=== PATIENT | male | born 1955 | race Caucasian/White ===

== ENCOUNTER 2018-01-24 10:54 | Emergency (ER) | payer OTHER ==
[2018-01-24 12:19] LABS: Absolute Lymphocytes (CBC) 1.8 K/uL (0.7-4.9); Absolute Monocytes 0.4 K/uL (0.1-1.3); Absolute Neutrophil 4.5 K/uL (1.8-8.0); Basophils % 0.3 % (0-1.3); Eosinophils % 1.3 % (0-4.4); Hematocrit 42.2 % (39.6-49.0); Lymphocytes % 26.1 % (15.3-44.8); MCH 30.8 pg (27.0-35.0); MCV 91.1 fL (80-100); MPV 8.2 fL (7.6-11.3); Monocytes % 6.5 % (3.3-12.3); RBC Red Blood Cell Count 4.63 M/uL (4.33-5.43)
[2018-01-24 12:28] LABS: Protime INR 0.96
[2018-01-24 12:33] LABS: Bicarbonate 27 mEq/L (21-31); Glucose Level 113 mg/dL (65-120); Sodium Level 137 mEq/L (135-145)
--- NOTE | 2018-01-24 12:33 | RAD REPORT ---
EXAM DESCRIPTION: RAD - Chest Single View - 01/24/2018 12:22 pm CLINICAL HISTORY: Syncope, dizziness COMPARISON: None. TECHNIQUE: AP portable chest image was obtained 1209 hours . FINDINGS: Lungs are clear. Heart and vasculature are normal. No measurable pleural effusion and no p neumothorax. No gross bony abnormality seen. No acute aortic findings suspected. IMPRESSION: No acute cardiopulmonary process.
--- NOTE | 2018-01-24 12:34 | RAD REPORT ---
EXAM DESCRIPTION: CT - Head Brain Wo Cont - 01/24/2018 12:25 pm COMPARISON: None. TECHNIQUE: Axial 5 mm thick images of the head were obtained without IV contrast. All CT scans are performed using dose optimization technique as appropriate and may include automated exposure control or mA/KV adjustment according to patient size. FINDINGS: No intracranial hemorrhage, mass, edema or shift of mid-line structures. No acute infarcti on changes seen. Minimal atrophy and chronic ischemic change noted. Arterial and physiologic calcific ations are present. No abnormal extra-axial fluid collections. Ventricles are normal. Mastoid air cells and visualized portions of the paranasal sinuses are clear. No acute bony findings. IMPRESSION: Negative non-contrast CT head examination for acute or suspicious finding.
[2018-01-24 12:39] LABS: ALT/SGPT 21 IU/L (10-60); AST/SGOT 32 IU/L (10-42); Albumin 4.2 g/dL (3.2-5.5); Alkaline Phosphatase 56 IU/L (42-121); BUN Blood Urea Nitrogen 14 mg/dL (6-20); Bilirubin Direct < 0.1 mg/dL (0-0.2); Bilirubin Total 0.6 mg/dL (0.3-1.2); Creatine Phosphokinase 108 IU/L (22-269); Glomerular Filtration Rate > 90 mL/min (=/>90); Protein, Total 7.5 g/dL (6.0-8.3)
[2018-01-24] MEDS ORDERED: MECLIZINE HCL 12.5 MG TAB ONE (12:39)
[2018-01-24] MEDS ORDERED: ONDANSETRON 4 MG/2 ML VIAL ONE (12:39)
[2018-01-24 12:40] LABS: CKMB Creatine Kinase MB 2.8 ng/ml (0.3-4.0)
--- NOTE | 2018-01-24 15:15 | ER ---
Nurse's Notes [facility] Name: Antony Rothman Age: 62 yrs Sex: Male : 1955 Arrival Date: 01/24/2018 Time: 10:59 Bed 17 Private MD: Filippo Callaway Diagnosis: Dizziness Presentation: 01/24 11:26 Presenting complaint: Patient states: " I felt like I had some water in my R ear this ph morning so I plugged my nose and blew to try to unstop it and I got dizzy all of a sudden. Now the room is spinning when I stand up." Pt reports dizziness and nausea, denies weakness or syncope. Transition of care: patient was not received from another setting of care. Onset of symptoms was January 24, 2018. Care prior to arrival: None. 11:26 Method Of Arrival: Ambulatory ph 11:26 Acuity: MICHELLE 3 ph Historical: - Allergies: 11:30 No Known Allergies; ph - Home Meds: 11:30 Combivent 18-103 mcg/actuation Inhl aero [Active]; ph - PMHx: 11:30 COPD; ph - Immunization history:: Adult Immunizations up to date. - Social history:: Smoking status: Patient/guardian denies using tobacco. Screenin:45 Abuse screen: Denies threats or abuse. Denies injuries from another. Nutritional aj1 screening: No deficits noted. Tuberculosis screening: No symptoms or risk factors identified. 15:39 Fall Risk None identified. aj1 Assessment: 11:45 General: Appears in no apparent distress. uncomfortable, Behavior is calm, cooperative, aj1 appropriate for age. Pain: Denies pain. Neuro: Level of Consciousness is awake, alert, obeys commands, Oriented to person, place, time, situation, Operations And Intelligence Assistant are equal bilaterally Moves all extremities. Full function Speech is normal, Facial symmetry appears normal, Reports dizziness, Denies weakness numbness. Cardiovascular: Denies chest pain, palpitations, shortness of breath, syncope, vomiting, Heart tones S1 S2 present Patient's skin is warm and dry. Rhythm is regular Chest pain is denied. Respiratory: Airway is patent Respiratory effort is even, unlabored, Respiratory pattern is regular, symmetrical, Breath sounds are clear bilaterally. GI: No signs and/or symptoms were reported involving the gastrointestinal system. : No signs and/or symptoms were reported regarding the genitourinary system. EENT: No signs and/or symptoms were reported regarding the EENT system. Derm: No signs and/or symptoms reported regarding the dermatologic system. Skin is pink, warm \\T\\ dry. normal. Musculoskeletal: No signs and/or symptoms reported regarding the musculoskeletal system. Circulation, motion, and sensation intact. 12:15 Reassessment: Patient transported to [place] via wheelchair. aj1 12:57 Reassessment: Patient appears in no apparent distress at this time. No changes from aj1 previously documented assessment. Patient and/or family updated on plan of care and expected duration. Pain level reassessed. Patient is alert, oriented x 3, equal unlabored respirations, skin warm/dry/pink. 13:47 Reassessment: Patient appears in no apparent distress at this time. No changes from aj1 previously documented assessment. Patient and/or family updated on plan of care and expected duration. Pain level reassessed. Patient is alert, oriented x 3, equal unlabored respirations, skin warm/dry/pink. 15:18 Reassessment: Patient appears in no apparent distress at this time. Patient and/or aj1 family updated on plan of care and expected duration. Pain level reassessed. Patient is alert, oriented x 3, equal unlabored respirations, skin warm/dry/pink. Patient denies pain at this time. Patient states feeling better. Patient states symptoms have improved. Vital Signs: 11:29 BP 161 / 100; Pulse 62; Resp 18; Temp 97.6; Pulse Ox 99% on R/A; Weight 88.45 kg; ph Height 5 ft. 7 in. (170.18 cm); Pain 0/10; 12:00 BP 165 / 85; Pulse 72; Resp 18; Pulse Ox 99% ; aj1 12:57 BP 159 / 87; Pulse 56; Resp 18; Pulse Ox 99% on R/A; aj1 13:48 BP 143 / 82; Pulse 60; Resp 18; Pulse Ox 99% ; aj1 15:18 BP 133 / 88; Pulse 62; Resp 18; Pulse Ox 99% on R/A; aj1 15:38 BP 130 / 75; Pulse 62; Resp 18; Pulse Ox 100% on R/A; aj1 11:29 Body Mass Index 30.54 (88.45 kg, 170.18 cm) ph ED Course: 10:59 Patient arrived in ED. as 11:00 [facility], [facility] is Private Physician. as 11:25 Jorge Bermeo PA is PHCP. cp 11:25 Torey Ortiz MD is Attending Physician. cp 11:28 Triage completed. ph 11:30 Arm band placed on. ph 11:35 Mireille Espinoza, RN is Primary Nurse. aj1 11:45 Patient has correct armband on for positive identification. aj1 11:45 No provider procedures requiring assistance completed. aj1 12:25 CT completed. Patient tolerated procedure well. Patient moved back from CT. nb1 15:14 Anatoly Dawn MD is Referral Physician. cp 15:38 IV discontinued, intact, bleeding controlled, No redness/swelling at site. Pressure aj1 dressing applied. Administered Medications: 13:05 Drug: Meclizine 25 mg Route: PO; aj1 15:19 Follow up: Response: No adverse reaction aj1 13:05 Drug: Zofran 4 mg Route: IVP; Site: right antecubital; aj1 15:19 Follow up: Response: No adverse reaction aj1 Outcome: 15:14 Discharge ordered by MD. cp 15:39 Discharged to home ambulatory. aj1 15:39 Condition: good 15:39 Discharge instructions given to patient, Instructed on discharge instructions, follow up and referral plans. medication usage, Demonstrated understanding of instructions, follow-up care, medications, Prescriptions given X 2. 15:39 Patient left the ED. aj1 Signatures: Mireille Espinoza, RN RN aj1 Marilin Farah Patricia, RN RN Jorge Bermeo PA PA cp Sherry Jauregui nb
--- NOTE | 2018-01-24 15:15 | EDPHYS ---
Physician Documentation [facility] Name: Antony Rothman Age: 62 yrs Sex: Male : 1955 Arrival Date: 01/24/2018 Time: 10:59 Bed 17 Private MD: [facility] ED Physician Torey Ortiz HPI: 01/24 11:50 This 62 yrs old Male presents to ER via Ambulatory with complaints of Vertigo.cp 11:50 The patient presents with dizziness, lightheadedness, feeling off balance. Onset: The cp symptoms/episode began/occurred this morning, started after attempted to plug nose and blow water from ear canal. 11:50 Associated signs and symptoms: Pertinent negatives: abdominal pain, blurred vision, cp chest pain, diaphoresis, focal weakness, headache, near-syncope, palpitations, syncope, vomiting. Severity of symptoms: in the emergency department the symptoms are unchanged. Patient's baseline: Neuro: alert and fully oriented, Motor: no deficits, Ambulation: walks without assistance, Speech: normal. Historical: - Allergies: 11:30 No Known Allergies; ph - Home Meds: 11:30 Combivent 18-103 mcg/actuation Inhl aero [Active]; ph - PMHx: 11:30 COPD; ph - Immunization history:: Adult Immunizations up to date. - Social history:: Smoking status: Patient/guardian denies using tobacco. ROS: 12:00 Constitutional: Negative for body aches, chills, fever, poor PO intake. cp 12:00 Eyes: Negative for injury, pain, redness, and discharge. cp 12:00 ENT: Negative for drainage from ear(s), ear pain, sore throat, difficulty swallowing, difficulty handling secretions. 12:00 Cardiovascular: Negative for chest pain, edema, palpitations. 12:00 Respiratory: Negative for cough, shortness of breath, wheezing. 12:00 Abdomen/GI: Positive for nausea, Negative for vomiting, diarrhea, constipation, black/tarry stool, rectal bleeding. 12:00 Skin: Negative for cellulitis, rash. 12:00 Neuro: Positive for dizziness, Negative for altered mental status, headache, syncope, near syncope, visual changes, weakness. 12:00 All other systems are negative. Exam: 12:08 Constitutional: The patient appears in no acute distress, alert, awake, cp non-diaphoretic, non-toxic, well developed, well nourished. 12:08 Head/Face: Normocephalic, atraumatic. cp 12:08 Eyes: Pupils equal round and reactive to light, extra-ocular motions intact. Lids and cp lashes normal. Conjunctiva and sclera are non-icteric and not injected. Cornea within normal limits. Periorbital areas with no swelling, redness, or edema. 12:08 ENT: External ear(s): are unremarkable, Ear canal(s): are normal, clear, TM's: bulging, is not appreciated, bilaterally, erythema, that is mild, bilaterally, fluid levels, is not appreciated, bilaterally, Nose: is normal, Mouth: Lips: moist, Oral mucosa: pink and intact, moist, Posterior pharynx: is normal, airway is patent, no erythema, no exudate, Voice: is normal. 12:08 Neck: External neck: is normal, ROM/movement: is normal, is supple, without pain, no range of motions limitations, no meningismus, no nuchal rigidity. 12:08 Chest/axilla: Inspection: normal, Palpation: is normal, no crepitus, no tenderness. 12:08 Cardiovascular: Rate: normal, Rhythm: regular, Pulses: Pulses are 2+ in right radial artery and left radial artery. Edema: is not appreciated, JVD: is not appreciated. 12:08 Respiratory: the patient does not display signs of respiratory distress, Respirations: normal, no use of accessory muscles, no retractions, no splinting, no tachypnea, labored breathing, is not present, Breath sounds: are clear throughout, no decreased breath sounds, no stridor, no wheezing. 12:08 Abdomen/GI: Inspection: abdomen appears normal, Bowel sounds: active, all quadrants, Palpation: abdomen is soft and non-tender, in all quadrants, rebound tenderness, is not appreciated, voluntary guarding, is not appreciated, involuntary guarding, is not appreciated. 12:08 Skin: cellulitis, is not appreciated, no rash present. cp 12:08 Neuro: Orientation: to person, place \T\ time. Mentation: is normal, Cranial nerves: grossly normal, Cerebellar function: is grossly normal, Motor: moves all fours, strength is normal, Sensation: is normal. 13:15 ECG was reviewed by the Attending Physician. cp Vital Signs: 11:29 BP 161 / 100; Pulse 62; Resp 18; Temp 97.6; Pulse Ox 99% on R/A; Weight 88.45 kg; ph Height 5 ft. 7 in. (170.18 cm); Pain 0/10; 12:00 BP 165 / 85; Pulse 72; Resp 18; Pulse Ox 99% ; aj1 12:57 BP 159 / 87; Pulse 56; Resp 18; Pulse Ox 99% on R/A; aj1 13:48 BP 143 / 82; Pulse 60; Resp 18; Pulse Ox 99% ; aj1 15:18 BP 133 / 88; Pulse 62; Resp 18; Pulse Ox 99% on R/A; aj1 15:38 BP 130 / 75; Pulse 62; Resp 18; Pulse Ox 100% on R/A; aj1 11:29 Body Mass Index 30.54 (88.45 kg, 170.18 cm) ph MDM: 11:35 Patient medically screened. cp 12:00 Differential diagnosis: cardiac arrhythmia, CVA, generalized weakness, GI bleed, cp hypovolemia, idiopathic dizziness, TIA, vertigo. 15:10 Data reviewed: vital signs, nurses notes, lab test result(s), EKG, radiologic studies, cp CT scan, plain films. 15:10 Test interpretation: by ED physician or midlevel provider: ECG, plain radiologic cp studies. 15:10 Counseling: I had a detailed discussion with the patient and/or guardian regarding: the cp historical points, exam findings, and any diagnostic results supporting the discharge/admit diagnosis, lab results, radiology results, the need for outpatient follow up, a neurologist, to return to the emergency department if symptoms worsen or persist or if there are any questions or concerns that arise at home. 15:10 Response to treatment: the patient's symptoms have markedly improved after treatment, cp VSS. Patient reports symptoms markedly improved. Will discharge to home for continued monitoring. 01/24 11:54 Order name: Basic Metabolic Panel cp 01/24 11:54 Order name: BNP cp 01/24 11:54 Order name: CBC with Diff cp 01/24 11:54 Order name: Ckmb cp 01/24 11:54 Order name: CPK cp 01/24 11:54 Order name: LFT's cp 01/24 11:54 Order name: Magnesium cp 01/24 11:54 Order name: PT-INR cp 01/24 11:54 Order name: Ptt, Activated cp 01/24 11:54 Order name: Troponin (emerg Dept Use Only) cp 01/24 12:22 Order name: CBC with Automated Diff; Complete Time: 14:28 EDMS 01/24 12:29 Order name: Protime (+INR); Complete Time: 14:28 EDMS 01/24 12:29 Order name: PTT, Activated Partial Thromb; Complete Time: 14:28 EDMS 01/24 12:33 Order name: Basic Metabolic Panel; Complete Time: 14:28 EDMS 01/24 14:28 Interpretation: Normal except: CRE 0.59. cp 01/24 11:47 Order name: CT Head Brain wo Cont cp 01/24 11:54 Order name: XRAY Chest (1 view) cp 01/24 11:54 Order name: EKG; Complete Time: 11:54 cp 01/24 11:54 Order name: Cardiac monitoring; Complete Time: 12:14 01/24 11:54 Order name: EKG - Nurse/Tech; Complete Time: 13:08 cp 01/24 11:54 Order name: IV Saline Lock; Complete Time: 12:14 01/24 12:34 Order name: RAD; Complete Time: 14:28 EDMS 01/24 12:34 Order name: CT; Complete Time: 14:28 EDMS 01/24 12:39 Order name: Troponin (Emerg Dept Use Only); Complete Time: 14:28 EDMS 01/24 12:39 Order name: Liver (Hepatic) Function; Complete Time: 14:28 EDMS 01/24 12:39 Order name: Creatine Phosphokinase; Complete Time: 14:28 EDMS 01/24 12:39 Order name: Magnesium; Complete Time: 14:28 EDMS 01/24 12:41 Order name: CKMB Creatine Kinase MB; Complete Time: 14:28 EDMS 01/24 12:41 Order name: BNP B-Type Natriuretic Peptide; Complete Time: 14:28 EDMS 01/24 11:54 Order name: Labs collected and sent; Complete Time: 12:14 cp 01/24 11:54 Order name: O2 Per Protocol; Complete Time: 12:14 cp 01/24 11:54 Order name: O2 Sat Monitoring; Complete Time: 12:14 cp 01/24 11:54 Order name: Urine Dipstick-Ancillary (obtain specimen); Complete Time: 13:44 cp 01/24 15:06 Order name: Harriett. Order: ambulate patient; Complete Time: 15:19 cp EC:15 Rate is 57 beats/min. Rhythm is regular. KS interval is normal. QRS interval is normal. cp QT interval is normal. T waves are Inverted in lead aVL. No ST changes noted. Interpreted by me. Reviewed by me. Administered Medications: 13:05 Drug: Meclizine 25 mg Route: PO; aj1 15:19 Follow up: Response: No adverse reaction aj 13:05 Drug: Zofran 4 mg Route: IVP; Site: right antecubital; aj 15:19 Follow up: Response: No adverse reaction aj Disposition: 01/24/18 15:14 Discharged to Home. Impression: Dizziness. - Condition is Stable. - Discharge Instructions: Dizziness, Vertigo. - Prescriptions for Meclizine 25 mg Oral Tablet - take 1 tablet by ORAL route every 8 hours As needed; 30 tablet. Zofran 4 mg Oral Tablet - take 1 tablet by ORAL route every 12 hours As needed; 20 tablet. - Medication Reconciliation Form, Thank You Letter, Antibiotic Education, Prescription Opioid Use form. - Follow up: Anatoly Dawn MD; When: 1 - 2 days; Reason: Recheck today's complaints. - Problem is new. - Symptoms have improved. Addendum: 01/28/2018 07:16 Co-signature as Attending Physician, Torey Ortiz MD. g s Signatures: Dispatcher [employer] Mireille Carroll RN RN aj1 Dyan Cueva RN RN ph Jorge Bermeo, CHASITY PA Torey Meyer MD MD
--- NOTE | 2018-01-24 15:56 | EKG ---
Test Date: 2018-01-24 Test Time: 13:10:02 [employer] Supervisor: LYDIA MEASUREMENT RESULTS: Intervals: Rate: 57 WI: 178 QRSD: 100 QT: 414 QTc: 402 [place]: P: 41 WI: 178 QRS: 11 T: 69 INTERPRETIVE STATEMENTS: Sinus bradycardia Otherwise normal ECG No previous ECG available for comparison Electronically Signed On 01-24-18 15:55:42 CDT by Mayo Beckwith
== END 2018-01-24 15:39 | disposition home or self-care (01) ==
LOC: ER 10:54
DX: R42 Dizziness and giddiness (principal); J44.9 Chronic obstructive pulmonary disease, unspecified
CPT/HCPCS: 36415; 70450; 71045; 80048; 80076; 82550; 82553; 83735; 83880; 84484; 85025; 85610; 85730; 93005; 96374; 99284; J2405

== ENCOUNTER 2018-06-20 14:16 | Emergency (ER) | payer OTHER ==
[2018-06-20] MEDS ORDERED: NA CHLORIDE 0.9% 1,000 ML ONE ×2 (15:07→15:43)
[2018-06-20 15:23] LABS: Absolute Lymphocytes (CBC) 1.2 K/uL (0.7-4.9); Absolute Monocytes 0.8 K/uL (0.1-1.3); Absolute Neutrophil 9.5 K/uL (1.8-8.0); Basophils % 0.1 % (0-1.3); Eosinophils % 1.6 % (0-4.4); Hematocrit 40.9 % (39.6-49.0); Lymphocytes % 10.5 % (15.3-44.8); MCH 31.5 pg (27.0-35.0); MCV 91.8 fL (80-100); MPV 8.4 fL (7.6-11.3); Monocytes % 7.1 % (3.3-12.3); RBC Red Blood Cell Count 4.45 M/uL (4.33-5.43)
[2018-06-20 15:28] LABS: Urine Blood 1+ (NEG); Urine Glucose NEGATIVE (NEG); Urine Protein 1+ (NEG); Urine Specific Gravity 1.015 (1.005-1.030)
[2018-06-20 15:29] LABS: BUN Blood Urea Nitrogen 11 mg/dL (7-18); Bicarbonate 28 mmol/L (21-32); Glucose Level 115 mg/dL (74-106); Potassium 4.5 mmol/L (3.5-5.1); Sodium Level 131 mmol/L (136-145)
[2018-06-20] MEDS ORDERED: CEFTRIAXONE/SWI 1gm 1 GM/10 ML SYR ONE (15:44)
--- NOTE | 2018-06-20 16:02 | ER ---
Nurse's Notes [facility] Name: Antony Rothman Age: 62 yrs Sex: Male : 1955 Arrival Date: 06/20/2018 Time: 14:20 Bed 5 Private MD: Filippo Callaway Diagnosis: Urinary tract infection, site not specified;Dehydration Presentation: 06/20 14:23 Presenting complaint: Patient states: "I think I am dehydrated and I have a UTI". aj Reports foul smelling urine. Transition of care: patient was not received from another setting of care. Onset of symptoms was June 18, 2018. Risk Assessment: Do you want to hurt yourself or someone else? Patient reports no desire to harm self or others. Initial Sepsis Screen: Does the patient meet any 2 criteria? No. Patient's initial sepsis screen is negative. Does the patient have a suspected source of infection? No. Patient's initial sepsis screen is negative. Care prior to arrival: None. 14:23 Method Of Arrival: Ambulatory 14:23 Acuity: MICHELLE 3 aj Triage Assessment: 14:24 General: Appears in no apparent distress. comfortable, Behavior is calm, cooperative, aj appropriate for age. Pain: Denies pain. Neuro: Level of Consciousness is awake, alert, obeys commands, Oriented to person, place, time, situation, Appropriate for age. Respiratory: Airway is patent Respiratory effort is even, unlabored, Respiratory pattern is regular, symmetrical. : Reports foul smelling urine. Derm: Skin is intact, is healthy with good turgor, Skin is pink, warm \\T\\ dry. normal. Historical: - Allergies: 14:24 No Known Allergies; aj - Home Meds: 14:24 Combivent 18-103 mcg/actuation Inhl aero [Active]; Magnesium Oxide Oral [Active]; aj - PMHx: 14:24 COPD; aj - PSHx: 14:24 Prostatectomy; aj - Immunization history:: Adult Immunizations up to date. - Social history:: Smoking status: Patient uses tobacco products, smokes one-half pack cigarettes per day, smokes one pack cigarettes per day. - Ebola Screening: : Patient negative for fever greater than or equal to 101.5 degrees Fahrenheit, and additional compatible Ebola Virus Disease symptoms Patient denies exposure to infectious person Patient denies travel to an Ebola-affected area in the 21 days before illness onset No symptoms or risks identified at this time. Screenin:40 Abuse screen: Denies threats or abuse. Nutritional screening: No deficits noted. jb4 Tuberculosis screening: No symptoms or risk factors identified. Fall Risk None identified. Assessment: 14:40 General: Appears in no apparent distress. comfortable, Behavior is calm, cooperative, jb4 appropriate for age. Pain: Complains of pain in low back area Pain does not radiate. Pain currently is 6 out of 10 on a pain scale. at worst was 10 out of 10 on a pain scale. Quality of pain is described as stabbing, Pain began 2-3 days ago. Is intermittent. Neuro: Level of Consciousness is awake, alert, obeys commands, Oriented to person, place, time, situation. Cardiovascular: Heart tones S1 S2 present Patient's skin is warm and dry. Respiratory: Airway is patent Respiratory effort is even, unlabored, Respiratory pattern is regular, symmetrical, Breath sounds are clear in right upper lobe, left upper lobe, right middle lobe, left lower lobe and right lower lobe Breath sounds are diminished in left posterior upper lobe, right posterior upper lobe, left posterior lower lobe, right posterior middle lobe and right posterior lower lobe. GI: Abdomen is distended, Bowel sounds present X 4 quads. Abd is non tender X 4 quads Reports bloating, Decrease in appetite. : Reports Feeling as though his bladder is not emptyi all the way and is urinating less often. EENT: No signs and/or symptoms were reported regarding the EENT system. Derm: Skin is intact, Skin is pink, warm \\T\\ dry. Musculoskeletal: No signs and/or symptoms reported regarding the musculoskeletal system. 15:40 Reassessment: Patient appears in no apparent distress at this time. Patient and/or jb4 family updated on plan of care and expected duration. Pain level reassessed. Patient is alert, oriented x 3, equal unlabored respirations, skin warm/dry/pink. 16:13 Reassessment: Patient appears in no apparent distress at this time. Patient is alert, jb4 oriented x 3, equal unlabored respirations, skin warm/dry/pink. Waiting for bolus to finish to discharge. Patient states feeling better. 16:36 Reassessment: Patient appears in no apparent distress at this time. Patient and/or jb4 family updated on plan of care and expected duration. Pain level reassessed. Patient is alert, oriented x 3, equal unlabored respirations, skin warm/dry/pink. Reports pain is feeling better. Rated 3/10. Waiting for bolus to finish before discharge. 17:35 Reassessment: Patient appears in no apparent distress at this time. Patient and/or jb4 family updated on plan of care and expected duration. Pain level reassessed. Patient is alert, oriented x 3, equal unlabored respirations, skin warm/dry/pink. Waiting for bolus to finish to discharge. Vital Signs: 14:24 BP 133 / 70; Pulse 105; Resp 20; Temp 98.4; Pulse Ox 95% on R/A; Weight 86.18 kg; aj Height 5 ft. 7 in. (170.18 cm) (R); 14:45 BP 97 / 71 LA Supine; Pulse 89; Resp 16; Pulse Ox 96% on R/A; jb4 14:46 BP 121 / 75 LA Standing; Pulse 98; Resp 18 S; Pulse Ox 97% on R/A; jb4 14:46 BP 122 / 56 LA Sitting; Pulse 92; Resp 18; Pulse Ox 95% on R/A; jb4 15:30 BP 109 / 64; Pulse 86; Resp 16; Pulse Ox 99% on R/A; jb4 16:30 BP 117 / 70; Pulse 86; Resp 18; Pulse Ox 98% on R/A; jb4 17:00 BP 128 / 75; Pulse 88; Resp 18; Pulse Ox 98% on R/A; jb4 14:24 Body Mass Index 29.76 (86.18 kg, 170.18 cm) ED Course: 14:20 Patient arrived in ED. mr 14:20 [facility] is Private Physician. mr 14:24 Triage completed. aj 14:24 Arm band placed on right wrist. Patient placed in an exam room. aj 14:28 Grace Guzman FNP-C is [facility]. kb 14:28 Jorge Fu MD is Attending Physician. kb 14:40 Yung Hendricks, SUZANNE is Primary Nurse. jb4 14:40 Patient has correct armband on for positive identification. Placed in gown. Bed in low jb4 position. Call light in reach. Side rails up X 1. Pulse ox on. NIBP on. 14:50 Inserted saline lock: 22 gauge in right antecubital area, using aseptic technique. jb4 Blood collected. 14:50 Initial lab(s) drawn, by me, sent to lab. Missed attempt(s): 22 gauge in right forearm. jb4 17:53 No provider procedures requiring assistance completed. IV discontinued, intact, jb4 bleeding controlled. Administered Medications: 14:55 Drug: NS 0.9% 1000 ml Route: IV; Rate: 1000 ml; Site: right antecubital; jb4 16:20 Follow up: Response: No adverse reaction; IV Status: Completed infusion jb4 15:55 Drug: Rocephin - (cefTRIAXone) 1 grams Route: IVPB; Infused Over: 30 mins; Site: right jb4 antecubital; 15:57 Follow up: IV Status: Completed infusion; Given IVP per pharmacy protocol. jb4 16:05 Follow up: Response: No adverse reaction jb4 16:03 Drug: NS 0.9% 1000 ml Route: IV; Rate: 1000 ml; Site: right antecubital; jb4 17:45 Follow up: Response: No adverse reaction; IV Status: Completed infusion jb4 Intake: Outcome: 16:01 Discharge ordered by . kb 17:53 Discharged to home ambulatory. jb4 17:53 Condition: stable 17:53 Discharge instructions given to patient, Instructed on discharge instructions, follow up and referral plans. medication usage, Demonstrated understanding of instructions, follow-up care, medications, Prescriptions given X 1. 17:55 Patient left the ED. jb4 Addendum: 06/25/2018 08:55 Addendum: Culture Results: Positive urine culture. No further action required. Bacteria d m5 sensitive to prescribed antibiotic. Signatures: Grace Guzman, HOTEL CLERK-C HOTEL CLERK-Chana Antunez, RN RN dm5 Amy Lyle, SUZANNE RN Kaylee Bush James, RN RN jb4 Corrections: (The following items were deleted from the chart) 06/20 15:32 14:40 Pain: Denies pain. jb4 jb4 16:38 16:36 Reassessment: Patient appears in no apparent distress at this time. Patient jb4 and/or family updated on plan of care and expected duration. Pain level reassessed. Patient is alert, oriented x 3, equal unlabored respirations, skin warm/dry/pink. Reports pain is feeling better. Rated 3/10 jb4
--- NOTE | 2018-06-20 16:02 | EDPHYS ---
Physician Documentation [facility] Name: Antony Rothman Age: 62 yrs Sex: Male : 1955 Arrival Date: 06/20/2018 Time: 14:20 Bed 5 Private [facility]: [facility] ED Physician Jorge Fu HPI: 06/20 14:45 This 62 yrs old Male presents to ER via Ambulatory with complaints of kb Dehydrated. 14:45 The patient presents with urinary symptoms, foul smelling urine. Onset: The kb symptoms/episode began/occurred today. Modifying factors: The symptoms are alleviated by nothing, the symptoms are aggravated by nothing. Associated signs and symptoms: The patient has no apparent associated signs or symptoms. Severity of symptoms: At their worst the symptoms were moderate, in the emergency department the symptoms are unchanged. The patient has experienced similar episodes in the past. The patient has not recently seen a physician. Pt states "I'm dehydrated. I know because my piss smells bad. I've had this a lot of times before.". Historical: - Allergies: 14:24 No Known Allergies; aj - Home Meds: 14:24 Combivent 18-103 mcg/actuation Inhl aero [Active]; Magnesium Oxide Oral [Active]; aj - PMHx: 14:24 COPD; aj - PSHx: 14:24 Prostatectomy; aj - Immunization history:: Adult Immunizations up to date. - Social history:: Smoking status: Patient uses tobacco products, smokes one-half pack cigarettes per day, smokes one pack cigarettes per day. - Ebola Screening: : Patient negative for fever greater than or equal to 101.5 degrees Fahrenheit, and additional compatible Ebola Virus Disease symptoms Patient denies exposure to infectious person Patient denies travel to an Ebola-affected area in the 21 days before illness onset No symptoms or risks identified at this time. ROS: 14:45 Constitutional: Negative for fever, chills, and weight loss, Cardiovascular: Negative kb for chest pain, palpitations, and edema, Respiratory: Negative for shortness of breath, cough, wheezing, and pleuritic chest pain, Abdomen/GI: Negative for abdominal pain, nausea, vomiting, diarrhea, and constipation, Back: Negative for injury and pain, MS/Extremity: Negative for injury and deformity, Skin: Negative for injury, rash, and discoloration, Neuro: Negative for headache, weakness, numbness, tingling, and seizure. 14:45 : Positive for foul smelling urine, Negative for urinary frequency, burning with urination, difficulty urinating. Exam: 14:45 Constitutional: This is a well developed, well nourished patient who is awake, alert, kb and in no acute distress. Head/Face: Normocephalic, atraumatic. Chest/axilla: Normal chest wall appearance and motion. Nontender with no deformity. No lesions are appreciated. Cardiovascular: Regular rate and rhythm with a normal S1 and S2. No gallops, murmurs, or rubs. Normal PMI, no JVD. No pulse deficits. Respiratory: Lungs have equal breath sounds bilaterally, clear to auscultation and percussion. No rales, rhonchi or wheezes noted. No increased work of breathing, no retractions or nasal flaring. Abdomen/GI: Soft, non-tender, with normal bowel sounds. No distension or tympany. No guarding or rebound. No evidence of tenderness throughout. Back: No spinal tenderness. No costovertebral tenderness. Full range of motion. Skin: Warm, dry with normal turgor. Normal color with no rashes, no lesions, and no evidence of cellulitis. MS/ Extremity: Pulses equal, no cyanosis. Neurovascular intact. Full, normal range of motion. Neuro: Awake and alert, GCS 15, oriented to person, place, time, and situation. Cranial nerves II-XII grossly intact. Motor strength 5/5 in all extremities. Sensory grossly intact. Cerebellar exam normal. Normal gait. Vital Signs: 14:24 BP 133 / 70; Pulse 105; Resp 20; Temp 98.4; Pulse Ox 95% on R/A; Weight 86.18 kg; aj Height 5 ft. 7 in. (170.18 cm) (R); 14:45 BP 97 / 71 LA Supine; Pulse 89; Resp 16; Pulse Ox 96% on R/A; jb4 14:46 BP 121 / 75 LA Standing; Pulse 98; Resp 18 S; Pulse Ox 97% on R/A; jb4 14:46 BP 122 / 56 LA Sitting; Pulse 92; Resp 18; Pulse Ox 95% on R/A; jb4 15:30 BP 109 / 64; Pulse 86; Resp 16; Pulse Ox 99% on R/A; jb4 16:30 BP 117 / 70; Pulse 86; Resp 18; Pulse Ox 98% on R/A; jb4 17:00 BP 128 / 75; Pulse 88; Resp 18; Pulse Ox 98% on R/A; jb4 14:24 Body Mass Index 29.76 (86.18 kg, 170.18 cm) aj MDM: 14:28 Patient medically screened. kb 14:45 Data reviewed: vital signs, nurses notes. Data interpreted: Pulse oximetry: on room air kb is 95 %. Interpretation: normal. 16:00 Counseling: I had a detailed discussion with the patient and/or guardian regarding: the kb historical points, exam findings, and any diagnostic results supporting the discharge/admit diagnosis, lab results, the need for outpatient follow up, a family practitioner, to return to the emergency department if symptoms worsen or persist or if there are any questions or concerns that arise at home. 06/20 14:35 Order name: CBC with Diff; Complete Time: 15:26 kb 06/20 14:35 Order name: Basic Metabolic Panel; Complete Time: 15:33 kb 06/20 15:21 Order name: Urine Dipstick--Ancillary (enter results); Complete Time: 15:33 bd 06/20 15:34 Order name: Urine Microscopic Only 06/20 15:34 Order name: Urine Culture 06/20 14:35 Order name: IV Start; Complete Time: 15:03 kb 06/20 14:35 Order name: Urine Dipstick-Ancillary (obtain specimen); Complete Time: 15:14 kb 06/20 14:35 Order name: Orthostatics; Complete Time: 15:03 kb Administered Medications: 14:55 Drug: NS 0.9% 1000 ml Route: IV; Rate: 1000 ml; Site: right antecubital; jb4 16:20 Follow up: Response: No adverse reaction; IV Status: Completed infusion jb4 15:55 Drug: Rocephin - (cefTRIAXone) 1 grams Route: IVPB; Infused Over: 30 mins; Site: right jb4 antecubital; 15:57 Follow up: IV Status: Completed infusion; Given IVP per pharmacy protocol. jb4 16:05 Follow up: Response: No adverse reaction jb4 16:03 Drug: NS 0.9% 1000 ml Route: IV; Rate: 1000 ml; Site: right antecubital; jb4 17:45 Follow up: Response: No adverse reaction; IV Status: Completed infusion jb4 Disposition: 06/21 09:18 Co-signature as Attending Physician, Jorge Fu MD I agree with the assessment and von plan of care. Disposition: 06/20/18 16:01 Discharged to Home. Impression: Urinary tract infection, site not specified, Dehydration. - Condition is Stable. - Discharge Instructions: Dehydration, Adult, Urinary Tract Infection, Adult, [id number]. - Prescriptions for cefpodoxime 100 mg Oral Tablet - take 1 tablet by ORAL route every 12 hours for 7 days take with food; 14 tablet. - Medication Reconciliation Form, Thank You Letter, Antibiotic Education, Prescription Opioid Use form. - Follow up: Private Physician; When: 2 - 3 days; Reason: Recheck today's complaints, Continuance of care, Re-evaluation by your physician. Follow up: Emergency Department; When: As needed; Reason: Worsening of condition. Addendum: 06/24/2018 19:20 Addendum: Unable to get Cefpodoxime filled. Rx written for Augmentin. s nw Signatures: Dispatcher [employer] EDGrace Reza, PIECE JOBBER-C PIECE JOBBER-Amy Arizmendi, RN Jorge Gamble MD MD cha Therrien, Shelly, PIECE JOBBER-C PIECE JOBBER-Rebeccaw Yung Hendricks, RN RN jb4 Corrections: (The following items were deleted from the chart) 06/20 17:55 16:01 06/20/2018 16:01 Discharged to Home. Impression: Urinary tract infection, site jb4 not specified; Dehydration. Condition is Stable. Forms are Medication Reconciliation Form, Thank You Letter, Antibiotic Education, Prescription Opioid Use. Follow up: Private Physician; When: 2 - 3 days; Reason: Recheck today's complaints, Continuance of care, Re-evaluation by your physician. Follow up: Emergency Department; When: As needed; Reason: Worsening of condition. kb
[2018-06-20 17:00] LABS: Urine Bacteria <20 /HPF (NONE SEEN); Urine Culture Reflex Order NOT NEEDED
== END 2018-06-20 17:55 | disposition home or self-care (01) ==
LOC: ER 14:16
DX: N39.0 Urinary tract infection, site not specified (principal); E86.0 Dehydration; J44.9 Chronic obstructive pulmonary disease, unspecified; F17.210 Nicotine dependence, cigarettes, uncomplicated
CPT/HCPCS: 36415; 80048; 81003; 81015; 85025; 87077; 87086; 87088; 87186; 96361; 96374; 99284; J0696; J7030

== ENCOUNTER 2019-05-15 12:23 | Emergency (ER) | payer OTHER ==
[2019-05-15 13:18] LABS: Absolute Lymphocytes (CBC) 1.1 K/uL (0.7-4.9); Basophils % 0.5 % (0-1.3); Eosinophils % 2.4 % (0-4.4); Hematocrit 42.4 % (39.6-49.0); Lymphocytes % 31.1 % (15.3-44.8); Monocytes % 9.9 % (3.3-12.3); RBC Red Blood Cell Count 4.69 M/uL (4.33-5.43)
[2019-05-15] MEDS ORDERED: NA CHLORIDE 0.9% 1,000 ML ONE (13:29)
[2019-05-15 13:32] LABS: Protime INR 0.97
[2019-05-15 13:41] LABS: ALT/SGPT 25 U/L (12-78); AST/SGOT 25 U/L (15-37); Albumin 3.7 g/dL (3.4-5.0); Alkaline Phosphatase 67 U/L (45-117); BUN Blood Urea Nitrogen 11 mg/dL (7-18); Bicarbonate 27 mmol/L (21-32); Bilirubin Direct 0.1 mg/dL (0-0.2); Bilirubin Total 0.4 mg/dL (0.2-1.0); Glucose Level 92 mg/dL (74-106); Lipase 107 U/L (73-393); Magnesium 2.3 mg/dL (1.8-2.4); NT PRO-BNP 41 pg/mL (<125); Potassium 4.1 mmol/L (3.5-5.1); Protein, Total 7.9 g/dL (6.4-8.2); Sodium Level 135 mmol/L (136-145); Troponin (Emerg Dept Use Only) < 0.02 ng/mL (0.0-0.045)
--- NOTE | 2019-05-15 14:11 | RAD REPORT ---
EXAM DESCRIPTION: Joelle Single View05/15/2019 1:49 pm CLINICAL HISTORY: Congestion COMPARISON: December 2017 FINDINGS: The lungs appear clear of acute infiltrate. The heart is normal size IMPRESSION: No acute abnormalities displayed
--- NOTE | 2019-05-15 14:13 | RAD REPORT ---
EXAM DESCRIPTION: US - Abdomen Exam Limited - 05/15/2019 2:01 pm CLINICAL HISTORY: Abdominal pain. COMPARISON: None. FINDINGS: The gallbladder wall is not thickened. A gallstone is not seen. The biliary tree is normal caliber. Fatty liver IMPRESSION: Unremarkable gallbladder ultrasound.
[2019-05-15 15:42] LABS: Urine Blood TRACE (NEG); Urine Glucose NEGATIVE (NEG); Urine Protein 1+ (NEG); Urine pH 6.5 (5.0-7.0)
[2019-05-15 15:46] LABS: Urine Bacteria >50 /HPF (NONE SEEN); Urine Culture Reflex Order NOT NEEDED; Urine Mucus 1+ /HPF (NONE SEEN); Urine RBC <5 /HPF (NONE SEEN)
--- NOTE | 2019-05-15 15:50 | EDPHYS ---
Physician Documentation [facility] Name: Antony Rothman Age: 63 yrs Sex: Male : 1955 Arrival Date: 05/15/2019 Time: 12:24 Bed 23 Private MD: ED Physician Dominick Jansen HPI: 05/15 13:01 This 63 yrs old Male presents to ER via Ambulatory with complaints of COPD snw Exacerbation, Dehydration. 13:01 The patient or guardian reports cough, described as mild, described as moderate. Onset: snw The symptoms/episode began/occurred suddenly, and became persistent 1 weeks ago. Modifying factors: The symptoms are alleviated by nothing. Associated signs and symptoms: Pertinent positives: abdominal bloating and dehydration, no appetite. Severity of symptoms: At their worst the symptoms were moderate. The patient has experienced similar episodes in the past. It is unknown whether or not the patient has recently seen a physician, [facility]. Historical: - Allergies: 12:37 No Known Allergies; aa5 - Home Meds: 12:37 Albuterol Inhl [Active]; Spiriva with HandiHaler inhalation inhalation [Active]; aa5 pantoprazole 40 mg oral TbEC once daily [Active]; - PMHx: 12:37 COPD; aa5 - PSHx: 12:37 prostate sx; aa5 - Immunization history:: Pneumococcal vaccine is not up to date, Flu vaccine is not up to date. - Social history:: Smoking status: Patient uses tobacco products, smokes two packs cigarettes per day. - Ebola Screening: : No symptoms or risks identified at this time. ROS: 13:01 Eyes: Negative for injury, pain, redness, and discharge, ENT: Negative for injury, snw pain, and discharge, Neck: Negative for injury, pain, and swelling, Cardiovascular: Negative for chest pain, palpitations, and edema. 13:01 Back: Negative for injury and pain, : Negative for injury, bleeding, discharge, and swelling, MS/Extremity: Negative for injury and deformity, Skin: Negative for injury, rash, and discoloration, Neuro: Negative for headache, weakness, numbness, tingling, and seizure. 13:01 Constitutional: Positive for body aches, malaise, poor PO intake. 13:01 Respiratory: Positive for cough, with no reported sputum. 13:01 Abdomen/GI: Positive for abdominal pain, abdominal distension. Exam: 13:04 Constitutional: This is a well developed, well nourished patient who is awake, alert, snw and in no acute distress. Head/Face: Normocephalic, atraumatic. Eyes: Pupils equal round and reactive to light, extra-ocular motions intact. Lids and lashes normal. Conjunctiva and sclera are non-icteric and not injected. Cornea within normal limits. Periorbital areas with no swelling, redness, or edema. ENT: Nares patent. No nasal discharge, no septal abnormalities noted. Tympanic membranes are normal and external auditory canals are clear. Oropharynx with no redness, swelling, or masses, exudates, or evidence of obstruction, uvula midline. Mucous membranes moist. Neck: Trachea midline, no thyromegaly or masses palpated, and no cervical lymphadenopathy. Supple, full range of motion without nuchal rigidity, or vertebral point tenderness. No Meningismus. Chest/axilla: Normal chest wall appearance and motion. Nontender with no deformity. No lesions are appreciated. Cardiovascular: Regular rate and rhythm with a normal S1 and S2. No gallops, murmurs, or rubs. Normal PMI, no JVD. No pulse deficits. Respiratory: Lungs have equal breath sounds bilaterally, clear to auscultation and percussion. No rales, rhonchi or wheezes noted. No increased work of breathing, no retractions or nasal flaring. 13:04 Back: No spinal tenderness. No costovertebral tenderness. Full range of motion. Skin: Warm, dry with normal turgor. Normal color with no rashes, no lesions, and no evidence of cellulitis. MS/ Extremity: Pulses equal, no cyanosis. Neurovascular intact. Full, normal range of motion. Neuro: Awake and alert, GCS 15, oriented to person, place, time, and situation. Cranial nerves II-XII grossly intact. Motor strength 5/5 in all extremities. Sensory grossly intact. Cerebellar exam normal. Normal gait. Psych: Awake, alert, with orientation to person, place and time. Behavior, mood, and affect are within normal limits. 13:04 Abdomen/GI: Inspection: distension, that is moderate, Bowel sounds: normal, Palpation: nontender, in all quadrants. Vital Signs: 12:37 BP 130 / 66; Pulse 84; Resp 16 S; Temp 98.3(TE); Pulse Ox 96% on R/A; Weight 88 kg (R); aa5 Height 5 ft. 7 in. (170.18 cm) (R); Pain 9/10; 14:46 BP 113 / 49; Pulse 86; Resp 16; Pulse Ox 98% on R/A; la1 15:30 BP 130 / 87; Pulse 70; Resp 16; Pulse Ox 98% on R/A; rv 16:02 BP 125 / 72; Pulse 73; Resp 17; Temp 98; Pulse Ox 99% on R/A; Pain 0/10; rv 12:37 Body Mass Index 30.38 (88.00 kg, 170.18 cm) aa5 MDM: 12:43 Patient medically screened. snw 15:50 Data reviewed: vital signs, nurses notes. Data interpreted: Pulse oximetry: on room air snw is 98 %. Interpretation: normal. Counseling: I had a detailed discussion with the patient and/or guardian regarding: the historical points, exam findings, and any diagnostic results supporting the discharge/admit diagnosis, lab results, radiology results, the need for outpatient follow up, to return to the emergency department if symptoms worsen or persist or if there are any questions or concerns that arise at home, smoking cessation. Special discussion: Based on the history and exam findings, there is no indication for further emergent testing or inpatient evaluation. I discussed with the patient/guardian the need to see the primary care provider for further evaluation of the symptoms. 05/15 12:58 Order name: Basic Metabolic Panel 05/15 12:58 Order name: CBC with Diff 05/15 12:58 Order name: LFT's 05/15 12:58 Order name: Magnesium 05/15 12:58 Order name: NT PRO-BNP; Complete Time: 13:43 iw 05/15 12:58 Order name: PT-INR; Complete Time: 13:33 iw 05/15 12:58 Order name: Troponin (emerg Dept Use Only); Complete Time: 13:43 iw 05/15 12:58 Order name: Lipase; Complete Time: 13:43 iw 05/15 12:58 Order name: Basic Metabolic Panel; Complete Time: 13:43 EDMS 05/15 12:59 Order name: CBC with Automated Diff; Complete Time: 13:30 EDCA 05/15 12:59 Order name: Liver (Hepatic) Function; Complete Time: 13:43 EDCA 05/15 12:59 Order name: Magnesium; Complete Time: 13:43 EDCA 05/15 14:55 Order name: Urine Culture sn 05/15 14:55 Order name: Urine Microscopic Only; Complete Time: 15:48 sn 05/15 12:58 Order name: XRAY Chest (1 view); Complete Time: 14:15 05/15 12:58 Order name: EKG; Complete Time: 12:59 iw 05/15 12:58 Order name: Cardiac monitoring; Complete Time: 13:11 05/15 12:58 Order name: EKG - Nurse/Tech; Complete Time: 13:11 05/15 12:58 Order name: IV Saline Lock; Complete Time: 13:11 05/15 12:58 Order name: Labs collected and sent; Complete Time: 13:11 05/15 12:58 Order name: O2 Per Protocol; Complete Time: 13:11 05/15 12:58 Order name: O2 Sat Monitoring; Complete Time: 13:11 05/15 12:58 Order name: US Abdomen Limited; Complete Time: 14:15 05/15 14:55 Order name: Urine Dipstick-Ancillary (obtain specimen); Complete Time: 15:29 [facility] 05/15 14:55 Order name: Urine Culture [facility] 05/15 15:31 Order name: Urine Dipstick--Ancillary (enter results); Complete Time: 15:43 eb Administered Medications: 13:29 Drug: NS 0.9% 1000 ml Route: IV; Rate: 100 ml/hr; Site: right antecubital; la1 16:02 Follow up: IV Status: Completed infusion; IV Intake: 300ml rv 14:55 Drug: NS 0.9% 500 ml Route: IV; Rate: bolus; Site: right antecubital; rv 15:29 Follow up: IV Status: Completed infusion; IV Intake: 500ml rv 15:55 Drug: Rocephin 1 grams Route: IV; Rate: calculated rate; Site: right antecubital; rv 16:02 Follow up: IV Status: Completed infusion rv Disposition: 17:34 Co-signature as Attending Physician, Dominick Jansen MD. rn Disposition: 05/15/19 15:49 Discharged to Home. Impression: Urinary tract infection, site not specified, Acute upper respiratory infection, unspecified. - Condition is Stable. - Discharge Instructions: Steps to Quit Smoking, Upper Respiratory Infection, Adult, Urinary Tract Infection, Adult, Cool Mist Vaporizer, Dietary Guidelines to Help Prevent Kidney Stones, Rehydration, Adult. - Prescriptions for Augmentin 875- 125 mg Oral Tablet - take 1 tablet by ORAL route every 12 hours for 10 days; 20 tablet. - Work release form, Medication Reconciliation Form, Thank You Letter, Antibiotic Education, Prescription Opioid Use form. - Follow up: Private Physician; When: 1 - 2 days; Reason: Recheck today's complaints, Continuance of care, Re-evaluation by your physician. Follow up: Emergency Department; When: As needed; Reason: Worsening of condition. - Problem is new. - Symptoms are unchanged. Signatures: Dispatcher [employer] EDMS Pilar Browning, TREAD BOOKER-C TREAD BOOKER-Csnw Georgie Bedoya, Dominick Brown RN, MD MD rn Calderon, Audri, RN RN aa5 Dakota Kaplan RN RN la1 Cedrick Graham, RN RN rv Corrections: (The following items were deleted from the chart) 16:05 15:49 05/15/2019 15:49 Discharged to Home. Impression: Urinary tract infection, site rv not specified; Acute upper respiratory infection, unspecified. Condition is Stable. Forms are Medication Reconciliation Form, Thank You Letter, Antibiotic Education, Prescription Opioid Use. Follow up: Private Physician; When: 1 - 2 days; Reason: Recheck today's complaints, Continuance of care, Re-evaluation by your physician. Follow up: Emergency Department; When: As needed; Reason: Worsening of condition. Problem is new. Symptoms are unchanged. snw
--- NOTE | 2019-05-15 15:50 | ER ---
Nurse's Notes [facility] Name: Antony Rothman Age: 63 yrs Sex: Male : 1955 Arrival Date: 05/15/2019 Time: 12:24 Bed 23 Private MD: Diagnosis: Urinary tract infection, site not specified;Acute upper respiratory infection, unspecified Presentation: 05/15 12:34 Presenting complaint: Patient states: generalized weakness, productive cough with clear aa5 sputum x 4 days ago. Pt also reports SOB and pain all over. Transition of care: patient was not received from another setting of care. Onset of symptoms was May 2019. Risk Assessment: Do you want to hurt yourself or someone else? Patient reports no desire to harm self or others. Initial Sepsis Screen: Does the patient meet any 2 criteria? No. Patient's initial sepsis screen is negative. Does the patient have a suspected source of infection? No. Patient's initial sepsis screen is negative. Care prior to arrival: None. 12:34 Method Of Arrival: Ambulatory aa5 12:34 Acuity: MICHELLE 3 aa5 Historical: - Allergies: 12:37 No Known Allergies; aa5 - Home Meds: 12:37 Albuterol Inhl [Active]; Spiriva with HandiHaler inhalation inhalation [Active]; aa5 pantoprazole 40 mg oral TbEC once daily [Active]; - PMHx: 12:37 COPD; aa5 - PSHx: 12:37 prostate sx; aa5 - Immunization history:: Pneumococcal vaccine is not up to date, Flu vaccine is not up to date. - Social history:: Smoking status: Patient uses tobacco products, smokes two packs cigarettes per day. - Ebola Screening: : No symptoms or risks identified at this time. Screenin:50 Abuse screen: Denies threats or abuse. Nutritional screening: No deficits noted. la1 Tuberculosis screening: No symptoms or risk factors identified. Fall Risk None identified. Assessment: 12:49 General: Appears in no apparent distress. Behavior is calm, cooperative. Pain: Denies la1 pain. Neuro: Level of Consciousness is awake, alert, obeys commands, Oriented to person, place, time, situation. Cardiovascular: Capillary refill < 3 seconds Patient's skin is warm and dry. Respiratory: Airway is patent Respiratory effort is even, unlabored, Respiratory pattern is regular, symmetrical, Breath sounds are coarse bilaterally. the patient has mild shortness of breath. GI: Abdomen is round non-distended, Bowel sounds present X 4 quads. : No signs and/or symptoms were reported regarding the genitourinary system. 13:54 Reassessment: Patient appears in no apparent distress at this time. No changes from la1 previously documented assessment. Patient and/or family updated on plan of care and expected duration. Pain level reassessed. Patient is alert, oriented x 3, equal unlabored respirations, skin warm/dry/pink. 14:47 Reassessment: Patient appears in no apparent distress at this time. No changes from la1 previously documented assessment. Patient and/or family updated on plan of care and expected duration. Pain level reassessed. Patient is alert, oriented x 3, equal unlabored respirations, skin warm/dry/pink. Vital Signs: 12:37 BP 130 / 66; Pulse 84; Resp 16 S; Temp 98.3(TE); Pulse Ox 96% on R/A; Weight 88 kg (R); aa5 Height 5 ft. 7 in. (170.18 cm) (R); Pain 9/10; 14:46 BP 113 / 49; Pulse 86; Resp 16; Pulse Ox 98% on R/A; la1 15:30 BP 130 / 87; Pulse 70; Resp 16; Pulse Ox 98% on R/A; rv 16:02 BP 125 / 72; Pulse 73; Resp 17; Temp 98; Pulse Ox 99% on R/A; Pain 0/10; rv 12:37 Body Mass Index 30.38 (88.00 kg, 170.18 cm) aa5 ED Course: 12:24 Patient arrived in ED. as 12:29 Pilar Browning FNP-C is PHCP. snw 12:29 Dominick Jansen MD is Attending Physician. snw 12:34 Arm band placed on. aa5 12:35 Triage completed. aa5 12:49 Daniella Kaplan, SUZANNE is Primary Nurse. la1 12:50 Call light in reach. Side rails up X 1. la1 13:11 Inserted saline lock: 20 gauge in right antecubital area, using aseptic technique. la1 Blood collected. 13:36 XRAY Chest (1 view) In Process Unspecified. EDMS 14:01 US Abdomen Limited In Process Unspecified. EDMS 14:05 Ultrasound completed. Patient tolerated well. sg3 15:29 Urine Culture Sent. rv 15:29 Urine Microscopic Only Sent. rv 15:30 Report received from daniella charles. Pulse ox on. NIBP on. rv 16:03 No provider procedures requiring assistance completed. IV discontinued, intact, rv bleeding controlled, No redness/swelling at site. Pressure dressing applied. Administered Medications: 13:29 Drug: NS 0.9% 1000 ml Route: IV; Rate: 100 ml/hr; Site: right antecubital; la1 16:02 Follow up: IV Status: Completed infusion; IV Intake: 300ml rv 14:55 Drug: NS 0.9% 500 ml Route: IV; Rate: bolus; Site: right antecubital; rv 15:29 Follow up: IV Status: Completed infusion; IV Intake: 500ml rv 15:55 Drug: Rocephin 1 grams Route: IV; Rate: calculated rate; Site: right antecubital; rv 16:02 Follow up: IV Status: Completed infusion rv Intake: 15:29 IV: 500ml; Total: 500ml. rv 16:02 IV: 300ml; Total: 800ml. rv Outcome: 15:49 Discharge ordered by MD. snw 16:04 Discharged to home ambulatory. rv 16:04 Condition: improved 16:04 Discharge instructions given to patient, Instructed on discharge instructions, follow up and referral plans. medication usage, Demonstrated understanding of instructions, follow-up care, medications, Prescriptions given X 1. 16:05 Patient left the ED. rv Addendum: 05/19/2019 07:11 Addendum: Culture Results: Positive urine culture. Bacteria is resistant to, has i w intermediate sensitivity, or is not tested against prescribed antibiotics. Report given to MARLENE for further evaluation and then to radio maintainer for follow up with patient. 15:05 Addendum: Culture Results: Phone call Attempt #1 phone is not a working number. i w Signatures: Dispatcher [employer] EDMS Pilar Browning, JERRY-C BARTENDER-Csnw Marilin Farah Irene, RN RN iw Calderon, Audri, RN RN aa5 Daniella Kaplan RN RN la1 Jennifer Lund sg3 Santos, Cedrick, RN RN rv
[2019-05-15] MEDS ORDERED: CEFTRIAXONE/SWI 1gm 1 GM/10 ML SYR ONE (16:09)
--- NOTE | 2019-05-15 20:10 | EKG ---
Test Date: 2019-05-15 Test Time: 13:04:51 Curriculum Manager: LA MEASUREMENT RESULTS: Intervals: Rate: 76 VA: 150 QRSD: 92 QT: 372 QTc: 418 [place]: P: 28 VA: 150 QRS: -20 T: 60 INTERPRETIVE STATEMENTS: Normal sinus rhythm Normal ECG Compared to ECG 01/24/2018 13:10:02 Sinus bradycardia no longer present Electronically Signed On 05-15-19 20:08:29 CDT by Mayo Beckwith
== END 2019-05-15 16:05 | disposition home or self-care (01) ==
LOC: ER 12:23
DX: J06.9 Acute upper respiratory infection, unspecified (principal); N39.0 Urinary tract infection, site not specified; F17.210 Nicotine dependence, cigarettes, uncomplicated
CPT/HCPCS: 36415; 71045; 76705; 80048; 80076; 81003; 81015; 83690; 83735; 83880; 84484; 85025; 85610; 87077; 87086; 87088; 87186; 93005; 96361; 96374; 99284; J0696; J7030

== ENCOUNTER 2019-07-10 13:36 | Emergency (ER) | payer OTHER ==
[2019-07-10] MEDS ORDERED: NA CHLORIDE 0.9% 1,000 ML ONE (14:31)
[2019-07-10 14:44] LABS: Absolute Lymphocytes (CBC) 1.9 K/uL (0.7-4.9); Basophils % 0.6 % (0-1.3); Hematocrit 38.5 % (39.6-49.0); Lymphocytes % 14.7 % (15.3-44.8); MPV 8.4 fL (7.6-11.3); RBC Red Blood Cell Count 4.23 M/uL (4.33-5.43)
[2019-07-10 14:58] LABS: Urine Bacteria LOADED /HPF (NONE SEEN); Urine Culture Reflex Order REFLEXED
[2019-07-10 15:01] LABS: Potassium 4.7 mmol/L (3.5-5.1)
--- NOTE | 2019-07-10 15:30 | EDPHYS ---
Physician Documentation [facility] Name: Antony Rothman Age: 63 yrs Sex: Male : 1955 Arrival Date: 07/10/2019 Time: 13:39 Bed 17 Private MD: ED Physician Dominick Jansen HPI: 07/10 15:57 This 63 yrs old Male presents to ER via Ambulatory with complaints of kb Dehydration. 15:57 The patient presents with urinary symptoms, dysuria, urinary frequency. Onset: The kb symptoms/episode began/occurred last week. Modifying factors: The symptoms are alleviated by nothing, the symptoms are aggravated by urinating. Associated signs and symptoms: Pertinent positives: dysuria, Pertinent negatives: abdominal pain, constipation, diarrhea, fever, hematuria, nausea, vomiting. Severity of symptoms: At their worst the symptoms were moderate, in the emergency department the symptoms are unchanged. The patient has not experienced similar symptoms in the past. The patient has not recently seen a physician. Pt reports he has a UTI and was started on Bactrim. States his symptoms are getting better, but he came in to make sure he wasn't dehydrated. Historical: - Allergies: 14:02 No Known Allergies; aj1 - PMHx: 14:02 COPD; urinary opening rerouted to scrotum; aj1 - Immunization history:: Flu vaccine is not up to date. - Social history:: Smoking status: Patient uses tobacco products, smokes one pack cigarettes per day. - Ebola Screening: : Patient denies travel to an Ebola-affected area in the 21 days before illness onset. ROS: 16:00 Constitutional: Negative for fever, chills, and weight loss, ENT: Negative for injury, kb pain, and discharge, Neck: Negative for injury, pain, and swelling, Cardiovascular: Negative for chest pain, palpitations, and edema, Respiratory: Negative for shortness of breath, cough, wheezing, and pleuritic chest pain, Abdomen/GI: Negative for abdominal pain, nausea, vomiting, diarrhea, and constipation, MS/Extremity: Negative for injury and deformity, Skin: Negative for injury, rash, and discoloration. 16:00 : Positive for urinary symptoms, urinary frequency, burning with urination, foul smelling urine. 16:00 Neuro: Positive for weakness. Exam: 16:02 Constitutional: This is a well developed, well nourished patient who is awake, alert, kb and in no acute distress. Head/Face: Normocephalic, atraumatic. ENT: Nares patent. No nasal discharge, no septal abnormalities noted. Tympanic membranes are normal and external auditory canals are clear. Oropharynx with no redness, swelling, or masses, exudates, or evidence of obstruction, uvula midline. Mucous membranes moist. Neck: Trachea midline, no thyromegaly or masses palpated, and no cervical lymphadenopathy. Supple, full range of motion without nuchal rigidity, or vertebral point tenderness. No Meningismus. Chest/axilla: Normal chest wall appearance and motion. Nontender with no deformity. No lesions are appreciated. Cardiovascular: Regular rate and rhythm with a normal S1 and S2. No gallops, murmurs, or rubs. Normal PMI, no JVD. No pulse deficits. Respiratory: Lungs have equal breath sounds bilaterally, clear to auscultation and percussion. No rales, rhonchi or wheezes noted. No increased work of breathing, no retractions or nasal flaring. Back: No spinal tenderness. No costovertebral tenderness. Full range of motion. Skin: Warm, dry with normal turgor. Normal color with no rashes, no lesions, and no evidence of cellulitis. MS/ Extremity: Pulses equal, no cyanosis. Neurovascular intact. Full, normal range of motion. Neuro: Awake and alert, GCS 15, oriented to person, place, time, and situation. Cranial nerves II-XII grossly intact. Motor strength 5/5 in all extremities. Sensory grossly intact. Cerebellar exam normal. Normal gait. 16:02 Abdomen/GI: Inspection: distension, that is moderate, in the abdomen diffusely, pt reports his abd is not any different than normal, Bowel sounds: normal, Palpation: abdomen is soft and non-tender. Vital Signs: 14:02 BP 122 / 70; Pulse 85; Resp 18; Temp 99.1; Pulse Ox 97% on R/A; Weight 88 kg (R); aj1 Height 5 ft. 7 in. (170.18 cm) (R); Pain 10/10; 15:14 BP 143 / 79; Pulse 78; Resp 18; Pulse Ox 99% on R/A; em 14:02 Body Mass Index 30.38 (88.00 kg, 170.18 cm) aj1 MDM: 14:18 Patient medically screened. kb 16:00 Data reviewed: vital signs, nurses notes. Data interpreted: Pulse oximetry: on room air kb is 99 %. Interpretation: normal. Counseling: I had a detailed discussion with the patient and/or guardian regarding: the historical points, exam findings, and any diagnostic results supporting the discharge/admit diagnosis, lab results, the need for outpatient follow up, a family practitioner, to return to the emergency department if symptoms worsen or persist or if there are any questions or concerns that arise at home. 07/10 14:14 Order name: CBC with Diff; Complete Time: 14:46 kb 07/10 14:14 Order name: Basic Metabolic Panel; Complete Time: 15:10 kb 07/10 14:14 Order name: Urine Microscopic Only; Complete Time: 15:10 kb 07/10 14:31 Order name: Urine Dipstick--Ancillary (enter results) 07/10 15:01 Order name: Urine Culture [facility] 07/10 14:14 Order name: IV Start; Complete Time: 14:32 kb 07/10 14:14 Order name: Urine Dipstick-Ancillary (obtain specimen); Complete Time: 14:32 kb Administered Medications: 14:34 Drug: NS 0.9% 1000 ml Route: IV; Rate: 1000 ml; Site: right antecubital; em 15:50 Follow up: IV Status: Completed infusion; IV Intake: 1000ml em Disposition: 18:05 Co-signature as Attending Physician, Dominick Jansen MD. rn Disposition: 07/10/19 15:30 Discharged to Home. Impression: Urinary tract infection, site not specified. - Condition is Stable. - Discharge Instructions: Urinary Tract Infection, Adult, [id number]. - Medication Reconciliation Form, Thank You Letter, Antibiotic Education, Prescription Opioid Use form. - Follow up: Emergency Department; When: As needed; Reason: Worsening of condition. Follow up: Private Physician; When: 2 - 3 days; Reason: Recheck today's complaints, Continuance of care, Re-evaluation by your physician. - Notes: Continue Bactrim as prescribed Signatures: Dispatcher [employer] EDMS Grace Guzman, GIOVANNY EDWARDS-Mireille Whitten RN RN aj1 Adam, SHANELL Beverly LVN em Dominick Jansen MD MD director maternal child: (The following items were deleted from the chart) 15:53 15:30 07/10/2019 15:30 Discharged to Home. Impression: Urinary tract infection, site em not specified. Condition is Stable. Forms are Medication Reconciliation Form, Thank You Letter, Antibiotic Education, Prescription Opioid Use. Follow up: Emergency Department; When: As needed; Reason: Worsening of condition. Follow up: Private Physician; When: 2 - 3 days; Reason: Recheck today's complaints, Continuance of care, Re-evaluation by your physician. kb
--- NOTE | 2019-07-10 15:30 | ER ---
Nurse's Notes [facility] Name: Antony Rothman Age: 63 yrs Sex: Male : 1955 Arrival Date: 07/10/2019 Time: 13:39 Bed 17 Private MD: Diagnosis: Urinary tract infection, site not specified Presentation: 07/10 13:57 Presenting complaint: Patient states: "Im dehydrated. I went for a physical on the aj1 and the doctor wouldn't sign off because I had a urinary infection. I went to the [facility] and they gave me an antibiotic, Id been taking it for 2 days and it made me feel real tired and its been getting worse" Reports foul smelling urine. Denies N/V/D. Transition of care: patient was not received from another setting of care. Onset of symptoms was July 10, 2019. Risk Assessment: Do you want to hurt yourself or someone else? Patient reports no desire to harm self or others. Initial Sepsis Screen: Does the patient meet any 2 criteria? No. Patient's initial sepsis screen is negative. Does the patient have a suspected source of infection? No. Patient's initial sepsis screen is negative. Care prior to arrival: None. 13:57 Method Of Arrival: Ambulatory [facility] 13:57 Acuity: MICHELLE 3 aj1 Triage Assessment: 14:02 General: Appears in no apparent distress. comfortable, Behavior is calm, cooperative, aj1 appropriate for age. Pain: Pain currently is 10 out of 10 on a pain scale. Neuro: Level of Consciousness is awake, alert, obeys commands. Cardiovascular: Patient's skin is warm and dry. Respiratory: Airway is patent Respiratory effort is even, unlabored, Respiratory pattern is regular, symmetrical. Historical: - Allergies: 14:02 No Known Allergies; aj1 - PMHx: 14:02 COPD; urinary opening rerouted to scrotum; aj1 - Immunization history:: Flu vaccine is not up to date. - Social history:: Smoking status: Patient uses tobacco products, smokes one pack cigarettes per day. - Ebola Screening: : Patient denies travel to an Ebola-affected area in the 21 days before illness onset. Screenin:20 Abuse screen: Denies threats or abuse. Nutritional screening: No deficits noted. em Tuberculosis screening: No symptoms or risk factors identified. Fall Risk None identified. Assessment: 14:20 General: Appears in no apparent distress. comfortable, Behavior is calm, cooperative, em Denies fever. Pain: Complains of pain in "pain all over" Pain currently is 10 out of 10 on a pain scale. Pain began 2-3 days ago. Neuro: Level of Consciousness is awake, alert, obeys commands, Oriented to person, place, time, situation, Appropriate for age. Cardiovascular: Capillary refill < 3 seconds Patient's skin is warm and dry. Respiratory: Airway is patent Respiratory effort is even, unlabored, Respiratory pattern is regular, symmetrical. GI: Abdomen is distended, Bowel sounds present X 4 quads. Abd is soft and non tender X 4 quads. : Reports burning with urination. Derm: Skin is intact, is healthy with good turgor, Skin is pink, warm \\T\\ dry. Musculoskeletal: Capillary refill < 3 seconds, Range of motion: intact in all extremities. 15:16 Reassessment: Patient appears in no apparent distress at this time. Patient and/or em family updated on plan of care and expected duration. Pain level reassessed. Patient is alert, oriented x 3, equal unlabored respirations, skin warm/dry/pink. Vital Signs: 14:02 BP 122 / 70; Pulse 85; Resp 18; Temp 99.1; Pulse Ox 97% on R/A; Weight 88 kg (R); aj1 Height 5 ft. 7 in. (170.18 cm) (R); Pain 10/10; 15:14 BP 143 / 79; Pulse 78; Resp 18; Pulse Ox 99% on R/A; em 14:02 Body Mass Index 30.38 (88.00 kg, 170.18 cm) aj1 ED Course: 13:39 Patient arrived in ED. as 14:01 Triage completed. aj1 14:02 Arm band placed on Patient placed in an exam room. aj1 14:09 Rush Adam LVN is Primary Nurse. em 14:13 Grace Guzman FNP-C is PHCP. kb 14:13 Dominick Jansen MD is Attending Physician. kb 14:20 Initial lab(s) drawn, by ED staff, sent to lab. Urine collected: clean catch specimen, jp3 clear, [place] colored. 14:32 Bed in low position. Call light in reach. Side rails up X 1. Verbal reassurance given. jp3 Pulse ox on. NIBP on. 14:32 Urine Dipstick--Ancillary (enter results) Sent. jp3 14:32 Urine Microscopic Only Sent. jp3 14:32 Basic Metabolic Panel Sent. jp3 14:33 CBC with Diff Sent. jp3 15:49 No provider procedures requiring assistance completed. IV discontinued, intact, em bleeding controlled, No redness/swelling at site. Pressure dressing applied. Administered Medications: 14:34 Drug: NS 0.9% 1000 ml Route: IV; Rate: 1000 ml; Site: right antecubital; em 15:50 Follow up: IV Status: Completed infusion; IV Intake: 1000ml em Intake: 15:50 IV: 1000ml; Total: 1000ml. em Outcome: 15:30 Discharge ordered by . kb 15:49 Discharged to home ambulatory. em 15:49 Condition: good 15:49 Discharge instructions given to patient, Instructed on discharge instructions, follow up and referral plans. Demonstrated understanding of instructions, follow-up care. 15:53 Patient left the ED. em Signatures: Grace Guzman, BAND SPLICER-C BAND SPLICER-CkMireille Bruno, RN RN aj1 Rush Adam, MOTOR GRADER OPERATOR MOTOR GRADER OPERATOR em Marilni Farah Jacob jp3
[2019-07-10 17:59] VITALS: TEMP 99.1
[2019-07-10 18:00] VITALS: BP 143/79; O2SAT 99
[2019-07-10 20:16] LABS: Urine Blood TRACE (NEG); Urine Glucose NEGATIVE (NEG); Urine Protein TRACE (NEG); Urine Specific Gravity 1.015 (1.005-1.030); Urine pH 6.5 (5.0-7.0)
== END 2019-07-10 15:53 | disposition home or self-care (01) ==
LOC: ER 13:36
DX: N39.0 Urinary tract infection, site not specified (principal); F17.210 Nicotine dependence, cigarettes, uncomplicated
CPT/HCPCS: 87088; 85025; 87086; 80048; 36415; 87077; 87186; 96360; 99283; J7030; 81003; 81015

== ENCOUNTER 2020-03-19 05:44 | Emergency (ER) | payer OTHER ==
[2020-03-19] MEDS ORDERED: NA CHLORIDE 0.9% 0 ML ONE (06:21)
[2020-03-19] MEDS ORDERED: ONDANSETRON 4 MG/2 ML VIAL ONE (06:25)
[2020-03-19] MEDS ORDERED: NA CHLORIDE 0.9% 1,000 ML ONE (06:25)
[2020-03-19 06:33] LABS: Absolute Lymphocytes (CBC) 1.6 K/uL (0.7-4.9); Basophils % 0.4 % (0-1.3); Hematocrit 41.4 % (39.6-49.0); RBC Red Blood Cell Count 4.56 M/uL (4.33-5.43)
[2020-03-19 06:47] LABS: ALT/SGPT 23 U/L (12-78); AST/SGOT 27 U/L (15-37); Albumin 3.5 g/dL (3.4-5.0); Alkaline Phosphatase 64 U/L (45-117); BUN Blood Urea Nitrogen 18 mg/dL (7-18); Bicarbonate 28 mmol/L (21-32); Bilirubin Direct < 0.1 mg/dL (0-0.2); Bilirubin Total 0.2 mg/dL (0.2-1.0); Glucose Level 123 mg/dL (74-106); Potassium 4.1 mmol/L (3.5-5.1); Protein, Total 7.5 g/dL (6.4-8.2); Sodium Level 138 mmol/L (136-145)
--- NOTE | 2020-03-19 06:54 | ER ---
Nurse's Notes [facility] Name: Antony Rothman Age: 64 yrs Sex: Male : 1955 Arrival Date: 03/19/2020 Time: 05:45 Bed 5 Private MD: Diagnosis: Fecal impaction;Constipation Presentation: 03/19 05:56 Chief complaint: Patient states: i have constipation for 3-4 days now and been mg2 nauseated today. Coronavirus screen: Proceed with normal triage. Patient denies a cough. Patient denies shortness of breath or difficulty breathing. Patient denies measured and/or subjective temperature greater than 100.4F prior to today's visit. Patient denies travel on a cruise ship or to a country the [facility] currently lists as an affected area. Patient denies contact with known and/or suspected case of COVID-19. Ebola Screen: No symptoms or risks identified at this time. Initial Sepsis Screen: Does the patient meet any 2 criteria? No. Patient's initial sepsis screen is negative. Does the patient have a suspected source of infection? No. Patient's initial sepsis screen is negative. Risk Assessment: Do you want to hurt yourself or someone else? Patient reports no desire to harm self or others. Onset of symptoms was March 16, 2020. 05:56 Method Of Arrival: Ambulatory mg2 05:56 Acuity: MICHELLE 3 mg2 Triage Assessment: 05:59 General: Appears uncomfortable, Behavior is calm, cooperative. Pain: Complains of pain mg2 in rectum. Pain: Pain at worst was 10 out of 10 on a pain scale. EENT: No signs and/or symptoms were reported regarding the EENT system. Neuro: Level of Consciousness is awake, alert, obeys commands, Oriented to person, place, time, situation. Cardiovascular: Capillary refill < 3 seconds Patient's skin is warm and dry. Respiratory: Airway is patent Respiratory effort is even, unlabored, Respiratory pattern is regular, symmetrical. GI: Abdomen is round distended, Reports constipation, nausea. : No signs and/or symptoms were reported regarding the genitourinary system. Derm: Skin is intact, is healthy with good turgor, Skin is pink, warm \T\ dry. normal. Musculoskeletal: Circulation, motion, and sensation intact. Capillary refill < 3 seconds. Historical: - Allergies: 05:59 No Known Allergies; mg2 - Home Meds: 05:59 Albuterol Inhl [Active]; pantoprazole 40 mg Oral TbEC once daily [Active]; Spiriva with mg2 HandiHaler inhalation [Active]; - PMHx: 05:59 COPD; urinary opening rerouted to scrotum; mg2 - PSHx: 05:59 knee sx; mg2 - Immunization history:: Flu vaccine is not up to date. - Social history:: Smoking status: Patient reports the use of cigarette tobacco products, smokes one pack cigarettes per day. Patient/guardian denies using alcohol, street drugs, IV drugs. Screenin:01 Abuse screen: Denies threats or abuse. Denies injuries from another. Nutritional mg2 screening: No deficits noted. Tuberculosis screening: No symptoms or risk factors identified. Fall Risk None identified. Assessment: 06:01 Reassessment: see triage assessment. mg2 06:01 GI: Abd is rigid X 4 quads. mg2 06:29 Reassessment: soap suds enema started. patient tolerated well the procedure. mg2 06:53 Reassessment: soapsuds enema unable to get through the bowel. manual evacuation done. mg2 able to move out big amount of bowel obstruction. patient tolerated well. Vital Signs: 05:56 BP 119 / 63; Pulse 67; Resp 18; Temp 97.5; Pulse Ox 98% on R/A; Weight 88.9 kg; Height mg2 5 ft. 7 in. (170.18 cm); 05:56 Body Mass Index 30.70 (88.90 kg, 170.18 cm) mg2 ED Course: 05:45 Patient arrived in ED. ds1 05:47 Dylan Bhatia, RN is Primary Nurse. mg2 05:59 Triage completed. mg2 05:59 Arm band placed on. mg2 06:01 Patient has correct armband on for positive identification. Placed in gown. Pulse ox mg2 on. NIBP on. Door closed. Warm blanket given. 06:07 Jorge Bermeo PA is PHCP. cp 06:07 Benny Murdock MD is Attending Physician. cp 06:23 Inserted saline lock: 20 gauge in left antecubital area, using aseptic technique. Blood mg2 collected. 07:09 No provider procedures requiring assistance completed. IV discontinued, intact, em bleeding controlled, No redness/swelling at site. Pressure dressing applied. Administered Medications: 06:22 Drug: Zofran (Ondansetron) 4 mg Route: IVP; Site: left antecubital; mg2 06:35 Follow up: Response: No adverse reaction mg2 06:23 Drug: NS 0.9% 500 ml Route: IV; Rate: bolus; Site: left antecubital; mg2 06:34 Follow up: Response: No adverse reaction; IV Status: Completed infusion; IV Intake: mg2 500ml 06:34 Drug: NS 0.9% 500 ml Route: IV; Rate: 100 ml/hr; Site: left antecubital; mg2 07:10 Follow up: IV Status: Order to discontinue infusion em Intake: 06:34 IV: 500ml; Total: 500ml. mg2 Outcome: 06:53 Discharge ordered by . cp 07:09 Discharged to home ambulatory. em 07:09 Condition: good 07:09 Discharge instructions given to patient, Instructed on discharge instructions, follow up and referral plans. medication usage, Demonstrated understanding of instructions, follow-up care, medications, Prescriptions given X 1. 07:11 Patient left the ED. em Signatures: Rush Adam, RN RN Genoveva Navarro ds1 Jorge Bermeo PA PA cp Dylan Bhatia, RN RN mg2
--- NOTE | 2020-03-19 06:54 | EDPHYS ---
Physician Documentation [facility] Name: Antony Rothman Age: 64 yrs Sex: Male : 1955 Arrival Date: 03/19/2020 Time: 05:45 Bed 5 Private MD: ED Physician Benny Murdock HPI: 03/19 06:14 This 64 yrs old Male presents to ER via Ambulatory with complaints of cp Constipation. 06:15 The patient presents to the emergency department with fecal impaction. Associate signs cp and symptoms: Pertinent positives: constipation, nausea, Pertinent negatives: abdominal pain, diarrhea, fever, lower GI bleeding. patient reports last BM was 3 days ago. Historical: - Allergies: 05:59 No Known Allergies; mg2 - Home Meds: 05:59 Albuterol Inhl [Active]; pantoprazole 40 mg Oral TbEC once daily [Active]; Spiriva with mg2 HandiHaler inhalation [Active]; - PMHx: 05:59 COPD; urinary opening rerouted to scrotum; mg2 - PSHx: 05:59 knee sx; mg2 - Immunization history:: Flu vaccine is not up to date. - Social history:: Smoking status: Patient reports the use of cigarette tobacco products, smokes one pack cigarettes per day. Patient/guardian denies using alcohol, street drugs, IV drugs. ROS: 06:16 Eyes: Negative for injury, pain, redness, and discharge. cp 06:16 Constitutional: Negative for body aches, chills, fever, poor PO intake. 06:16 ENT: Negative for ear pain, sore throat, difficulty swallowing, difficulty handling secretions. 06:16 Cardiovascular: Negative for chest pain, edema, palpitations. 06:16 Respiratory: Negative for cough, shortness of breath, wheezing. 06:16 Abdomen/GI: Positive for nausea, constipation, rectal pain, Negative for abdominal pain, vomiting, diarrhea, black/tarry stool, rectal bleeding. 06:16 : Negative for urinary symptoms. 06:16 All other systems are negative. Exam: 06:25 Head/Face: Normocephalic, atraumatic. cp 06:25 Constitutional: The patient appears in no acute distress, alert, awake, non-diaphoretic, non-toxic, well developed, well nourished, uncomfortable. 06:25 Chest/axilla: Inspection: normal. 06:25 Cardiovascular: Rate: normal. 06:25 Respiratory: the patient does not display signs of respiratory distress, Respirations: normal, no use of accessory muscles, no retractions, labored breathing, is not present. 06:25 Abdomen/GI: Inspection: abdomen appears normal, Rectal exam: Stool: brown, tenderness, that is moderate, fecal impaction, that is moderate. Vital Signs: 05:56 BP 119 / 63; Pulse 67; Resp 18; Temp 97.5; Pulse Ox 98% on R/A; Weight 88.9 kg; Height mg2 5 ft. 7 in. (170.18 cm); 05:56 Body Mass Index 30.70 (88.90 kg, 170.18 cm) mg2 MDM: 06:08 Patient medically screened. cp 06:25 Differential diagnosis: fecal impaction, bowel obstruction, constipation. cp 06:51 Data reviewed: vital signs, nurses notes, lab test result(s). ED course: VSS. Patient cp observed to have large bowel movement after disimpaction and enema. Will discharge to home for continued monitoring. 03/19 06:14 Order name: Basic Metabolic Panel; Complete Time: 06:48 cp 03/19 06:48 Interpretation: Normal except: GLUC 123. cp 03/19 06:14 Order name: CBC with Diff; Complete Time: 06:48 cp 03/19 06:14 Order name: Hepatic Function; Complete Time: 06:48 cp 18 06:48 Interpretation: Normal except: GLOB 4.0; A/G 0.9. cp 03/19 06:14 Order name: IV Saline Lock; Complete Time: 06:23 cp 03/19 06:14 Order name: Labs collected and sent; Complete Time: 06:23 cp 03/19 06:14 Order name: Misc. Order: soaps suds enema; Complete Time: 06:28 cp Administered Medications: 06:22 Drug: Zofran (Ondansetron) 4 mg Route: IVP; Site: left antecubital; mg2 06:35 Follow up: Response: No adverse reaction mg2 06:23 Drug: NS 0.9% 500 ml Route: IV; Rate: bolus; Site: left antecubital; mg2 06:34 Follow up: Response: No adverse reaction; IV Status: Completed infusion; IV Intake: mg2 500ml 06:34 Drug: NS 0.9% 500 ml Route: IV; Rate: 100 ml/hr; Site: left antecubital; mg2 07:10 Follow up: IV Status: Order to discontinue infusion em Disposition: 03/20 06:54 Co-signature as Attending Physician, Benny Murdock MD I agree with the assessment and 4 plan of care. Disposition: 03/19/20 06:53 Discharged to Home. Impression: Fecal impaction, Constipation. - Condition is Stable. - Discharge Instructions: Constipation, Adult, Fecal Impaction. - Prescriptions for Miralax 17 gram/dose Oral - take 1 packet by ORAL route once daily for 14 days dilute powder in 8 ounces of water or juice; 14 packet. - Medication Reconciliation Form, Thank You Letter, Antibiotic Education, Prescription Opioid Use form. - Follow up: Private Physician; When: 1 - 2 days; Reason: Worsening of condition. - Problem is new. - Symptoms have improved. Signatures: Dispatcher [employer] EDDE Rush Adam RN RN Jorge Bermeo PA PA cp Benny Murdock MD MD [facility] Dylan Bhatia RN RN mg2 Corrections: (The following items were deleted from the chart) 03/19 06:53 06:53 03/19/2020 06:53 Discharged to Home. Impression: Fecal impaction. Condition is cp Stable. Forms are Medication Reconciliation Form, Thank You Letter, Antibiotic Education, Prescription Opioid Use. Follow up: Private Physician; When: 1 - 2 days; Reason: Worsening of condition. Problem is new. Symptoms have improved. cp 07:11 06:53 03/19/2020 06:53 Discharged to Home. Impression: Fecal impaction; Constipation. em Condition is Stable. Discharge Instructions: Constipation, Adult, Fecal Impaction. Prescriptions for Miralax 17 gram/dose Oral - take 1 packet by ORAL route once daily for 14 days dilute powder in 8 ounces of water or juice; 14 packet. and Forms are Medication Reconciliation Form, Thank You Letter, Antibiotic Education, Prescription Opioid Use. Follow up: Private Physician; When: 1 - 2 days; Reason: Worsening of condition. Problem is new. Symptoms have improved. cp
[2020-03-19 07:26] VITALS: BP 119/63; TEMP 97.5; O2SAT 98
== END 2020-03-19 07:11 | disposition home or self-care (01) ==
LOC: ER 05:44
DX: K56.41 Fecal impaction (principal); F17.210 Nicotine dependence, cigarettes, uncomplicated; J44.9 Chronic obstructive pulmonary disease, unspecified
CPT/HCPCS: 96361; 85025; 80048; 36415; 80076; 96374; 99284; J7030; J2405; J7040

== ENCOUNTER 2020-09-17 18:02 | Emergency (ER) | payer OTHER ==
[2020-09-17 19:45] LABS: Urine Blood NEGATIVE (NEG); Urine Glucose NEGATIVE (NEG); Urine Protein 1+ (NEG)
[2020-09-17 21:32] LABS: Absolute Lymphocytes (CBC) 2.5 K/uL (0.7-4.9); Basophils % 0.7 % (0-1.3); Hematocrit 39.5 % (39.6-49.0); Lymphocytes % 28.7 % (15.3-44.8); MPV 8.2 fL (7.6-11.3); RBC Red Blood Cell Count 4.35 M/uL (4.33-5.43)
[2020-09-17] MEDS ORDERED: ASPIRIN 81 MG CHEWABLE TABLET ONE (21:38)
[2020-09-17] MEDS ORDERED: FOLIC ACID 5 MG/ML VIAL ONE (21:39)
[2020-09-17] MEDS ORDERED: NA CHLORIDE 0.9% 1,000 ML ONE (21:39)
[2020-09-17 21:53] LABS: ALT/SGPT 25 U/L (12-78); AST/SGOT 27 U/L (15-37); Albumin 3.5 g/dL (3.4-5.0); Alkaline Phosphatase 94 U/L (45-117); BUN Blood Urea Nitrogen 20 mg/dL (7-18); Bicarbonate 29 mmol/L (21-32); Bilirubin Direct < 0.1 mg/dL (0-0.2); Bilirubin Total 0.2 mg/dL (0.2-1.0); C-Reactive Protein 6.71 mg/L (<3.00); Glucose Level 159 mg/dL (74-106); Magnesium 2.2 mg/dL (1.8-2.4); NT PRO-BNP 70 pg/mL (<125); Potassium 3.8 mmol/L (3.5-5.1); Protein, Total 7.1 g/dL (6.4-8.2); Sodium Level 139 mmol/L (136-145); Troponin (Emerg Dept Use Only) < 0.02 ng/mL (0.0-0.045)
[2020-09-17] MEDS ORDERED: CEFTRIAXONE/SWI 1gm 1 GM/10 ML SYR ONE (21:55)
--- NOTE | 2020-09-17 23:48 | ER ---
Nurse's Notes [facility] Name: Antony Rothman Age: 64 yrs Sex: Male : 1955 Arrival Date: 09/17/2020 Time: 18:07 Bed 4 Private MD: Diagnosis: Tobacco abuse counseling;Tobacco use;Transient cerebral ischemic attack, unspecified;Essential (primary) hypertension;Sialolithiasis Presentation: 09/17 18:24 Chief complaint: Patient states: Right cheek numbness noticed this morning at 0800, ll1 thought he might have slept wrong. Numbness continues throughout the day, radiates down right side of face. Pain to same area is gradually increasing over the day. Smile symmetrical, gait steady. Coronavirus screen: Client denies travel out of the [place] in the last 14 days. At this time, the client does not indicate any symptoms associated with coronavirus-19. Ebola Screen: Patient denies travel to an Ebola-affected area in the 21 days before illness onset. Initial Sepsis Screen: Does the patient meet any 2 criteria? No. Patient's initial sepsis screen is negative. Does the patient have a suspected source of infection? No. Patient's initial sepsis screen is negative. Risk Assessment: Do you want to hurt yourself or someone else? Patient reports no desire to harm self or others. Onset of symptoms was September 17, 2020. 18:24 Method Of Arrival: Ambulatory 1 18:24 Acuity: MICHELLE 3 ll1 Historical: - Allergies: 18:27 No Known Allergies; ll1 - PMHx: 18:27 COPD; urinary opening rerouted to scrotum; ll1 - PSHx: 18:27 knee sx; right leg hardware; ll1 - Immunization history:: Flu vaccine is not up to date. - Social history:: Smoking status: Patient reports the use of cigarette tobacco products, smokes one pack cigarettes per day. - Family history:: not pertinent. Screenin:00 Abuse screen: Denies threats or abuse. Denies injuries from another. Nutritional rv screening: No deficits noted. Tuberculosis screening: No symptoms or risk factors identified. VAN Screening: Arm Drift: Patient shows no arm weakness. Patient is VAN negative. Fall Risk None identified. Assessment: 20:58 General: Appears comfortable, Behavior is calm, cooperative. Pain: Complains of pain in rv right zygomatic area. Neuro: Level of Consciousness is awake, alert, obeys commands, Oriented to person, place, time, situation. Cardiovascular: Patient's skin is warm and dry. Respiratory: Airway is patent Breath sounds are clear bilaterally. GI: Abdomen is round Bowel sounds present X 4 quads. Abd is soft and non tender X 4 quads. Derm: Skin is intact. 22:00 Reassessment: Patient appears in no apparent distress at this time. Patient is alert, rr5 oriented x 3, equal unlabored respirations, skin warm/dry/pink. awaiting for results. 23:00 Reassessment: Patient appears in no apparent distress at this time. Patient and/or rr5 family updated on plan of care and expected duration. Pain level reassessed. Patient is alert, oriented x 3, equal unlabored respirations, skin warm/dry/pink. 23:40 Reassessment: Patient appears in no apparent distress at this time. Patient is alert, rr5 oriented x 3, equal unlabored respirations, skin warm/dry/pink. reassessment done for discharge after the facial xray. 09/18 00:41 Reassessment: Patient appears in no apparent distress at this time. Patient is alert, rr5 oriented x 3, equal unlabored respirations, skin warm/dry/pink. discharge instruction given and explained without complaints made. Vital Signs: 09/17 18:24 BP 157 / 75; Pulse 69; Resp 18; Temp 98.7; Pulse Ox 97% ; Weight 88.45 kg; Height 5 ft. ll1 7 in. (170.18 cm); Pain /; 21:00 BP 131 / 75; Pulse 60; Resp 19; Temp 98; Pulse Ox 99% ; rr5 22:00 BP 123 / 85; Pulse 69; Resp 17; Pulse Ox 98% ; rr5 23:00 BP 131 / 75; Pulse 58; Resp 17; Temp 98.1; Pulse Ox 99% ; rr5 09/18 00:00 BP 128 / 69; Pulse 64; Resp 15; Pulse Ox 96% on R/A; rr5 00:33 BP 136 / 67; Pulse 58; Resp 16; Pulse Ox 96% on R/A; rr5 09/17 18:24 Body Mass Index 30.54 (88.45 kg, 170.18 cm) ll1 ED Course: 09/17 18:07 Patient arrived in ED. mr 18:27 Triage completed. ll1 18:28 Arm band placed on. ll1 20:42 Cedrick Graham, SUZANNE is Primary Nurse. rv 20:54 Jorge Fu MD is Attending Physician. von 21:00 Patient has correct armband on for positive identification. Bed in low position. Call rv light in reach. Side rails up X 1. Pulse ox on. NIBP on. 21:00 No provider procedures requiring assistance completed. rv 21:19 Inserted saline lock: 20 gauge in left antecubital area, using aseptic technique. Blood jb5 collected. 21:20 Basic Metabolic Panel Sent. jb5 21:20 CBC with Diff Sent. jb5 21:20 LFT's Sent. jb5 21:20 Magnesium Sent. jb5 21:21 NT PRO-BNP Sent. jb5 21:21 Troponin (emerg Dept Use Only) Sent. jb5 21:21 CRP Sent. jb5 21:21 Sed Rate Sent. jb5 21:28 XRAY Chest (1 view) In Process Unspecified. EDMS 21:40 US Carotid Artery Bilateral In Process Unspecified. EDMS 21:49 CT Head Brain wo Cont In Process Unspecified. EDMS 23:46 [place] MD is Referral Physician. von 23:46 Rico Peters DDS is Referral Physician. [facility] 09/18 00:42 Facial Bones <3 Views XRAY In Process Unspecified. EDMS 00:43 IV discontinued, intact, bleeding controlled, No redness/swelling at site. Pressure rr5 dressing applied. Administered Medications: 09/17 21:53 Drug: Rocephin 1 grams Route: IV; Rate: per protocol; Site: left antecubital; rr5 23:00 Follow up: Response: No adverse reaction; IV Status: Completed infusion; IV Intake: [id number] 21:54 Drug: foLIC Acid 1 mg Route: IVPB; Site: left antecubital; rr5 23:00 Follow up: Response: No adverse reaction; IV Status: Completed infusion rr5 21:54 Drug: NS 0.9% 1000 ml Route: IV; Rate: 1 bolus; Site: left antecubital; rr5 23:00 Follow up: Response: No adverse reaction; IV Status: Completed infusion; IV Intake: rr5 1000ml 23:18 Drug: Aspirin Chewable Tablet 324 mg Route: PO; rr5 09/18 00:15 Follow up: Response: No adverse reaction rr5 09/17 23:56 Drug: Augmentin 875 mg Route: PO; rr5 09/18 00:43 Follow up: Response: No adverse reaction rr5 Intake: 09/17 23:00 IV: 10ml; Total: 10ml. rr5 23:00 IV: 1000ml; Total: 1010ml. rr5 Outcome: 23:48 Discharge ordered by MD. longoria 09/18 00:43 Discharged to home ambulatory. rr5 Condition: stable Discharge instructions given to patient, Instructed on discharge instructions, follow up and referral plans. medication usage, Demonstrated understanding of instructions, follow-up care, medications, Prescriptions given X 4, aspirin and lemon drops 00:44 Patient left the ED. rr5 Signatures: Dispatcher [employer] EDMS Jorge Fu MD MD cha Rivera, Marizol mr MurilloAna jb5 Cedrick Graham RN RN Bc Mays RN RN rr5 Aneudy Mims RN RN ll1 Corrections: (The following items were deleted from the chart) 00:41 00:33 Reassessment: rr5 rr5
--- NOTE | 2020-09-17 23:48 | EDPHYS ---
Physician Documentation [facility] Name: Antony Rothman Age: 64 yrs Sex: Male : 1955 Arrival Date: 09/17/2020 Time: 18:07 Bed 4 Private MD: ED Physician Jorge Fu HPI: 09/17 21:10 This 64 yrs old Male presents to ER via Ambulatory with complaints of von Numbness Of Face. 21:10 The patient's problem is reported as paresthesias, in right side of face. Onset: The von symptoms/episode began/occurred this morning. Duration: The episode is continuous. Context: symptoms became apparent upon waking, occurred at home. The symptoms are alleviated by nothing. The symptoms are aggravated by nothing. Associated signs and symptoms: The patient has no apparent associated signs or symptoms. Severity of symptoms: At their worst the symptoms were mild in the emergency department the symptoms have resolved and did so while in waiting room. Patient's baseline: Neuro: alert and fully oriented. The patient has not experienced similar symptoms in the past. Historical: - Allergies: 18:27 No Known Allergies; ll1 - PMHx: 18:27 COPD; urinary opening rerouted to scrotum; ll1 - PSHx: 18:27 knee sx; right leg hardware; ll1 - Immunization history:: Flu vaccine is not up to date. - Social history:: Smoking status: Patient reports the use of cigarette tobacco products, smokes one pack cigarettes per day. - Family history:: not pertinent. ROS: 21:10 Constitutional: Negative for fever, chills, and weight loss, Eyes: Negative for injury, von pain, redness, and discharge, ENT: Negative for injury, pain, and discharge, Neck: Negative for injury, pain, and swelling, Cardiovascular: Negative for chest pain, palpitations, and edema, Respiratory: Negative for shortness of breath, cough, wheezing, and pleuritic chest pain, Abdomen/GI: Negative for abdominal pain, nausea, vomiting, diarrhea, and constipation, Back: Negative for injury and pain, : Negative for injury, bleeding, discharge, and swelling, MS/Extremity: Negative for injury and deformity, Skin: Negative for injury, rash, and discoloration, Psych: Negative for depression, anxiety, suicide ideation, homicidal ideation, and hallucinations, Allergy/Immunology: Negative for hives, rash, and allergies, Endocrine: Negative for neck swelling, polydipsia, polyuria, polyphagia, and marked weight changes, Hematologic/Lymphatic: Negative for swollen nodes, abnormal bleeding, and unusual bruising. 21:10 Neuro: Positive for numbness, of the face and right zygomatic area. Exam: 21:10 Radiologist reports: see neeta longoria 21:10 Constitutional: This is a well developed, well nourished patient who is awake, alert, and in no acute distress. Eyes: Pupils equal round and reactive to light, extra-ocular motions intact. Lids and lashes normal. Conjunctiva and sclera are non-icteric and not injected. Cornea within normal limits. Periorbital areas with no swelling, redness, or edema. ENT: Nares patent. No nasal discharge, no septal abnormalities noted. Tympanic membranes are normal and external auditory canals are clear. Oropharynx with no redness, swelling, or masses, exudates, or evidence of obstruction, uvula midline. Mucous membranes moist. Neck: Trachea midline, no thyromegaly or masses palpated, and no cervical lymphadenopathy. Supple, full range of motion without nuchal rigidity, or vertebral point tenderness. No Meningismus. Chest/axilla: Normal chest wall appearance and motion. Nontender with no deformity. No lesions are appreciated. Cardiovascular: Regular rate and rhythm with a normal S1 and S2. No gallops, murmurs, or rubs. Normal PMI, no JVD. No pulse deficits. Respiratory: Lungs have equal breath sounds bilaterally, clear to auscultation and percussion. No rales, rhonchi or wheezes noted. No increased work of breathing, no retractions or nasal flaring. Abdomen/GI: Soft, non-tender, with normal bowel sounds. No distension or tympany. No guarding or rebound. No evidence of tenderness throughout. Back: No spinal tenderness. No costovertebral tenderness. Full range of motion. Male : Normal genitalia with no discharge or lesions. Skin: Warm, dry with normal turgor. Normal color with no rashes, no lesions, and no evidence of cellulitis. MS/ Extremity: Pulses equal, no cyanosis. Neurovascular intact. Full, normal range of motion. Neuro: Awake and alert, GCS 15, oriented to person, place, time, and situation. Cranial nerves II-XII grossly intact. Motor strength 5/5 in all extremities. Sensory grossly intact. Cerebellar exam normal. Normal gait. Psych: Awake, alert, with orientation to person, place and time. Behavior, mood, and affect are within normal limits. 21:10 Head/face: Noted is tenderness, that is mild, of the right cheek. 21:25 ECG was reviewed by the Attending Physician. [facility] 23:43 ENT: Mouth: Lips: normal, Oral mucosa: pink and intact, moist, Gums: normal with von healthy appearance, right parotid gland tender , duct at meatus, swollen, no stone palpated. Vital Signs: 18:24 BP 157 / 75; Pulse 69; Resp 18; Temp 98.7; Pulse Ox 97% ; Weight 88.45 kg; Height 5 ft. ll1 7 in. (170.18 cm); Pain 7/10; 21:00 BP 131 / 75; Pulse 60; Resp 19; Temp 98; Pulse Ox 99% ; rr5 22:00 BP 123 / 85; Pulse 69; Resp 17; Pulse Ox 98% ; rr5 23:00 BP 131 / 75; Pulse 58; Resp 17; Temp 98.1; Pulse Ox 99% ; rr5 09/18 00:00 BP 128 / 69; Pulse 64; Resp 15; Pulse Ox 96% on R/A; rr5 00:33 BP 136 / 67; Pulse 58; Resp 16; Pulse Ox 96% on R/A; rr5 09/17 18:24 Body Mass Index 30.54 (88.45 kg, 170.18 cm) ll1 MDM: 09/17 20:54 Patient medically screened. von 21:17 Differential diagnosis: CVA, TIA, metabolic disorder. Data reviewed: vital signs, [facility] nurses notes, lab test result(s), EKG, radiologic studies, CT scan, plain films. Data interpreted: quality assurance monitor final: rate is 69 beats/min, rhythm is regular, Pulse oximetry: on room air is 97 %. Test interpretation: by ED physician or midlevel provider: ECG, plain radiologic studies. Counseling: I had a detailed discussion with the patient and/or guardian regarding: the historical points, exam findings, and any diagnostic results supporting the discharge/admit diagnosis, lab results, radiology results, the need for outpatient follow up, for definitive care, an plisse machine operator, a neurologist. 09/17 19:42 Order name: Urine Dipstick--Ancillary (enter results); Complete Time: 21:26 nv 09/17 21:09 Order name: Basic Metabolic Panel; Complete Time: 23:30 [facility] 09/17 21:09 Order name: CBC with Diff; Complete Time: 23:30 [facility] 09/17 21:09 Order name: LFT's; Complete Time: 23:30 [facility] 09/17 21:09 Order name: Magnesium; Complete Time: 23:30 [facility] 09/17 21:09 Order name: NT PRO-BNP; Complete Time: 23:30 [facility] 09/17 21:09 Order name: Troponin (emerg Dept Use Only); Complete Time: 23:30 [facility] 09/17 21:09 Order name: XRAY Chest (1 view) [facility] 09/17 21:09 Order name: CT Head Brain wo Cont [facility] 09/17 21:09 Order name: US Carotid Artery Bilateral [facility] 09/17 21:09 Order name: Sed Rate; Complete Time: 23:30 [facility] 09/17 21:09 Order name: CRP; Complete Time: 23:30 [facility] 09/17 21:27 Order name: Urine Culture [facility] 09/17 23:46 Order name: Facial Bones <3 Views XRAY [facility] 09/17 19:24 Order name: Urine Dipstick-Ancillary (obtain specimen); Complete Time: 21:08 dm5 09/17 21:09 Order name: EKG; Complete Time: 21:10 [facility] 09/17 21:09 Order name: Cardiac monitoring; Complete Time: 21:20 [facility] 09/17 21:09 Order name: EKG - Nurse/Tech; Complete Time: 21:20 [facility] 09/17 21:09 Order name: IV Saline Lock; Complete Time: 21:20 [facility] 09/17 21:09 Order name: Labs collected and sent; Complete Time: 21:20 [facility] 09/17 21:09 Order name: O2 Per Protocol; Complete Time: 22:00 [facility] 09/17 21:09 Order name: O2 Sat Monitoring; Complete Time: 22:00 [facility] EC:25 Rate is 62 beats/min. Rhythm is regular. QRS [place] is Normal. ID interval is normal. QRS von interval is normal. QT interval is normal. No Q waves. T waves are Normal. No ST changes noted. Clinical impression: NSR w/ Non-specific ST/T Changes and No evidence of ischemia. Interpreted by me. Reviewed by me. Administered Medications: 21:53 Drug: Rocephin 1 grams Route: IV; Rate: per protocol; Site: left antecubital; rr5 23:00 Follow up: Response: No adverse reaction; IV Status: Completed infusion; IV Intake: [id number] 21:54 Drug: foLIC Acid 1 mg Route: IVPB; Site: left antecubital; rr5 23:00 Follow up: Response: No adverse reaction; IV Status: Completed infusion rr5 21:54 Drug: NS 0.9% 1000 ml Route: IV; Rate: 1 bolus; Site: left antecubital; rr5 23:00 Follow up: Response: No adverse reaction; IV Status: Completed infusion; IV Intake: rr5 1000ml 23:18 Drug: Aspirin Chewable Tablet 324 mg Route: PO; rr5 09/18 00:15 Follow up: Response: No adverse reaction rr5 09/17 23:56 Drug: Augmentin 875 mg Route: PO; rr5 09/18 00:43 Follow up: Response: No adverse reaction rr5 Disposition: 09/17/20 23:48 Discharged to Home. Impression: Tobacco abuse counseling, Tobacco use, Transient cerebral ischemic attack, unspecified, Essential (primary) hypertension, Sialolithiasis. - Condition is Stable. - Discharge Instructions: Hypertension, Steps to Quit Smoking, Smoking Hazards, Transient Ischemic Attack, Hypertension, Jiwl-[id number], Steps to Quit Smoking, Kazq-[id number], Transient Ischemic Attack, Wlii-wq-Lhtf, Aspirin and Your Heart, Managing Your Hypertension, Salivary Stone. - Prescriptions for Folic Acid 1 mg Oral Tablet - take 1 tablet by ORAL route once daily; 30 tablet. Augmentin 875- 125 mg Oral Tablet - take 1 tablet by ORAL route every 12 hours for 10 days; 20 tablet. - Medication Reconciliation Form, Thank You Letter, Antibiotic Education, Prescription Opioid Use form. - Follow up: Private Physician; When: 2 - 3 days; Reason: Recheck today's complaints, Continuance of care, Re-evaluation by your physician. Follow up: [place]; When: 2 - 3 days; Reason: Recheck today's complaints, Re-evaluation by your physician. Follow up: Rico Peters DDS; When: 2 - 3 days; Reason: Recheck today's complaints, Re-evaluation by your physician. - Problem is new. - Symptoms have improved. Signatures: Dispatcher [employer] EDChana Morrison, RN RN dm5 Jorge Fu MD MD cha Roque, Raymond RN RN rr5 Aneudy Mims RN RN ll1 Corrections: (The following items were deleted from the chart) 00:44 09/17 23:48 09/17/2020 23:48 Discharged to Home. Impression: Tobacco abuse counseling; rr5 Tobacco use; Transient cerebral ischemic attack, unspecified; Essential (primary) hypertension; Sialolithiasis. Condition is Stable. Discharge Instructions: Hypertension, Steps to Quit Smoking, Smoking Hazards, Transient Ischemic Attack, Hypertension, [id number], Steps to Quit Smoking, Oxyn-ak-Cvcm, Transient Ischemic Attack, Rzuw-dd-Yprs, Aspirin and Your Heart, Managing Your Hypertension. Prescriptions for Folic Acid 1 mg Oral Tablet - take 1 tablet by ORAL route once daily; 30 tablet. and Forms are Medication Reconciliation Form, Thank You Letter, Antibiotic Education, Prescription Opioid Use. Follow up: Private Physician; When: 2 - 3 days; Reason: Recheck today's complaints, Continuance of care, Re-evaluation by your physician. Follow up: [place]; When: 2 - 3 days; Reason: Recheck today's complaints, Re-evaluation by your physician. Follow up: [facility]; When: 2 - 3 days; Reason: Recheck today's complaints, Re-evaluation by your physician. Problem is new. Symptoms have improved. von
[2020-09-18] MEDS ORDERED: AMOX/K CLAV 875 MG TAB ONE (00:04)
--- NOTE | 2020-09-18 07:33 | RAD REPORT ---
EXAM DESCRIPTION: RAD - Chest Single View - 09/17/2020 9:27 pm CLINICAL HISTORY: COUGH COMPARISON: May 15 TECHNIQUE: AP portable chest image was obtained 09/17/2020 9:27 pm . FINDINGS: Lungs are clear. Interstitial pattern matches comparison when adjusting for the more shall ow inspiratory effort. No significant failure or volume overload. Heart and vasculature are normal. No measurable pleural effusion and no pneumothorax. No acute bony a bnormality seen. No acute aortic findings suspected. IMPRESSION: No acute cardiopulmonary process. No suspicious change from comparison.
--- NOTE | 2020-09-18 07:36 | RAD REPORT ---
EXAM DESCRIPTION: - CP - 09/17/2020 9:40 pm CLINICAL HISTORY: Dizziness;Numbness, right-sided weakness COMPARISON: No comparisons TECHNIQUE: Real-time sonographic evaluation of bilateral carotid and vertebral systems was performed . Pierson scale and Doppler interrogation were performed with waveform tracing bilaterally. FINDINGS: Normal high resistance waveforms are noted in both external carotid arteries. The common c arotid arteries and internal carotid arteries show normal low resistance waveforms. Minimal plaquing seen in the bilateral carotid vasculature. Visually there is no significant luminal narrowing. No dissection changes. Peak systolic and end diastolic velocity values and the ICA/CCA rat ios are in the non-hemodynamically significant range. Antegrade flow seen in both vertebral arteries. Velocity values and ratios were recorded and are retained in the patient's imaging records. IMPRESSION: Mild bilateral plaquing changes with no significant luminal narrowing. No evidence of a hemodynamically significant stenosis.
--- NOTE | 2020-09-18 08:14 | RAD REPORT ---
EXAM DESCRIPTION: RAD - Facial Bones <3 Views - 09/18/2020 12:41 am CLINICAL HISTORY: FORIEGN BODY, right-sided no less COMPARISON: No comparisons FINDINGS: No air-fluid level in the paranasal sinuses. Frontal sinuses are not pneumatized. Nasal se ptum is midline. No sclerotic or expansile bony destructive process. No significant degree of paranas al sinus mucosal thickening evident. No facial fracture. No foreign body. IMPRESSION: Facial bones series shows no significant or suspicious finding.
[2020-09-18 11:24] VITALS: TEMP 98.1
[2020-09-18 11:26] VITALS: O2SAT 96
[2020-09-18 11:31] VITALS: BP 136/67
--- NOTE | 2020-09-18 13:10 | RAD REPORT ---
EXAM DESCRIPTION: CT - Head Brain Wo Cont - 09/18/2020 6:40 am CLINICAL HISTORY: Right cheek numbness. COMPARISON: None. TECHNIQUE: CT scan of the brain was performed without IV contrast. This exam was performed accordi ng to our departmental dose-optimization program, which includes automated exposure control, adjustme nt of the mA and/or kV according to patient size and/or use of iterative reconstruction technique. FINDINGS: The ventricles, cisterns, and sulci are age-appropriate. No evidence of acute infarction, intracranial hemorrhage, extra-axial fluid collection, or midline shift. No air-fluid levels are seen in the paranasal sinuses to suggest acute sinusitis. No depressed skull fracture. IMPRESSION: No acute intracranial findings. Electronically signed by: Glenn Ayers MD 09/17/2020 10:[address] IN THEATER ATTENDANT Due to temporary technical issues with the PACS/Fluency reporting system, reports are being signed by the in house radiologists without review as a courtesy to insure prompt reporting. The interpreting radiologist is fully responsible for the content of the report.
--- NOTE | 2020-09-19 07:20 | EKG ---
Test Date: 2020-09-17 Test Time: 21:16:20 [place] Sizer: RR MEASUREMENT RESULTS: Intervals: Rate: 62 WI: 196 QRSD: 94 QT: 404 QTc: 410 [place]: P: 72 WI: 196 QRS: 26 T: 67 INTERPRETIVE STATEMENTS: Sinus rhythm with fusion complexes Otherwise normal ECG Compared to ECG 05/15/2019 13:04:51 Fusion complex(es) now present Electronically Signed On 09-19-20 07:17:50 [employer] CONSULTANT by Santana Chan
== END 2020-09-18 00:44 | disposition home or self-care (01) ==
LOC: ER 18:02
DX: G45.9 Transient cerebral ischemic attack, unspecified (principal); I10 Essential (primary) hypertension; K11.5 Sialolithiasis; J44.9 Chronic obstructive pulmonary disease, unspecified; Z72.0 Tobacco use; Z71.6 Tobacco abuse counseling
CPT/HCPCS: 96365; 93005; 87088; 85025; 87086; 80048; 36415; 83735; 80076; 85652; 87077 ×2; 87186 ×2; 81003; 84484; 83880; 86140; 70450; 71045; 70140; 93880; 99284; J0696; J7030

== ENCOUNTER 2021-09-25 12:35 | Emergency (ER) | payer OTHER ==
[2021-09-25 13:01] LABS: Absolute Lymphocytes (CBC) 1.3 K/uL (0.7-4.9); Basophils % 0.3 % (0-1.3); Hematocrit 40.9 % (39.6-49.0); Lymphocytes % 9.9 % (15.3-44.8); RBC Red Blood Cell Count 4.53 M/uL (4.33-5.43)
[2021-09-25 13:02] LABS: Protime INR 1.01
[2021-09-25 13:03] LABS: Urine Blood Trace-intact (Negative); Urine Glucose Negative (Negative); Urine Protein 2+ (Negative)
[2021-09-25 13:08] LABS: Urine Blood Trace-intact (Negative); Urine Glucose Negative (Negative); Urine Protein Negative (Negative); Urine Specific Gravity 1.015 (1.005-1.030)
[2021-09-25] MEDS ORDERED: METHYLPREDNISOLONE 125 MG INJ ONE (13:11)
[2021-09-25] MEDS ORDERED: LEVALBUTEROL 1.25 MG/3 ML NEB ONE (13:12)
[2021-09-25 13:22] LABS: ALT/SGPT 24 U/L (12-78); AST/SGOT 28 U/L (15-37); Albumin 3.5 g/dL (3.4-5.0); Alkaline Phosphatase 64 U/L (45-117); BUN Blood Urea Nitrogen 18 mg/dL (7-18); Bicarbonate 28 mmol/L (21-32); Bilirubin Direct 0.1 mg/dL (0-0.2); Bilirubin Total 0.7 mg/dL (0.2-1.0); Glucose Level 101 mg/dL (74-106); NT PRO-BNP 75 pg/mL (<125); Potassium 4.4 mmol/L (3.5-5.1); Protein, Total 7.5 g/dL (6.4-8.2); Sodium Level 137 mmol/L (136-145); Troponin (Emerg Dept Use Only) < 0.02 ng/mL (0.0-0.045)
--- NOTE | 2021-09-25 13:41 | RAD REPORT ---
EXAM DESCRIPTION: RAD - Chest Single View - 09/25/2021 1:33 pm CLINICAL HISTORY: CHEST PAIN Chest pain. COMPARISON: Chest Single View dated 09/17/2020; Chest Single View dated 05/15/2019; Chest Single View dated 01/24/2018 FINDINGS: Portable technique limits examination quality. The lungs are grossly clear. The heart is normal in size. No displaced fractures. IMPRESSION: No acute intrathoracic process suspected.
--- NOTE | 2021-09-25 14:30 | RAD REPORT ---
EXAM DESCRIPTION: CT - Chest For Pe Angio - 09/25/2021 2:17 pm CLINICAL HISTORY: Chest pain. CHEST PAIN COMPARISON: No comparisons TECHNIQUE: CT angiogram of the pulmonary arteries was performed with MIP. All CT scans are performed using dose optimization technique as appropriate and may include automated exposure control or mA/KV adjustment according to patient size. FINDINGS: No evidence of pulmonary thromboembolism. No acute aortic finding demonstrated. The lungs are clear. No significant pericardial or pleural fluid. No concerning bony finding. Mild diffuse fatty liver. IMPRESSION: No evidence of pulmonary thromboembolism. No acute lung findings.
[2021-09-25] MEDS ORDERED: KETOROLAC 30 MG/ML INJ ONE (15:05)
--- NOTE | 2021-09-25 16:46 | ER ---
Nurse's Notes [facility] [place], [place] Name: Antony Rothman Age: 66 yrs Sex: Male : 1955 Arrival Date: 09/25/2021 Time: 12:41 Bed 4 Private MD: Diagnosis: Chest pain, unspecified;Pleurisy;COPD/ Chronic obstructive pulmonary disease with (acute) exacerbation Presentation: 09/25 12:34 Chief complaint: EMS states: pt states at 2 am this morning the pain woke him up. mid tw2 sternal pain. pt was ambulatory on scene. rates pain 10/10. given 324 mg ASA and 0.4 mg SL Nitro. minimal relief noted from Nitro. BGL 138 mg/dL. 12:50 Chief complaint: Patient states: Pt reporting that he woke up feeling a sharp pain in 6 throat and chest. states that he has pressure in his lt chest area that is constant, pt alert able to speak in complete sentences and skin w/d. Coronavirus screen: Vaccine status: Patient reports receiving the 2nd dose of the covid vaccine. Date December 2020 Client denies travel out of the [place] in the last 14 days. At this time, the client does not indicate any symptoms associated with coronavirus-19. Ebola Screen: Patient negative for fever greater than or equal to 101.5 degrees Fahrenheit, and additional compatible Ebola Virus Disease symptoms Patient denies exposure to infectious person. Patient denies travel to an Ebola-affected area in the 21 days before illness onset. No symptoms or risks identified at this time. Initial Sepsis Screen: Does the patient meet any 2 criteria? No. Patient's initial sepsis screen is negative. Does the patient have a suspected source of infection? No. Patient's initial sepsis screen is negative. Onset of symptoms was September 25, 2021. 12:50 Method Of Arrival: EMS: [facility] 12:50 Acuity: MICHELLE [address] [facility] 12:55 Risk Assessment: Do you want to hurt yourself or someone else? Patient reports no [facility] desire to harm self or others. Triage Assessment: 12:56 General: Appears comfortable, Behavior is calm, cooperative. Pain: Complains of pain in [facility] chest Pain does not radiate. Pain currently is 10 out of 10 on a pain scale. Quality of pain is described as heavy, sharp, Pain began suddenly, 1 day ago. Is continuous, Aggravated by coughing or moving. Cardiovascular: No deficits noted. Capillary refill < 3 seconds is brisk fingers Chest pain is located in chest wall substernal area. Historical: - Allergies: 12:55 No Known Allergies; [facility] - Home Meds: 12:55 Albuterol Inhl [Active]; pantoprazole 40 mg Oral TbEC once daily [Active]; Spiriva with 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 - Immunization history:: Adult Immunizations up to date, Client reports receiving the 2nd dose of the Covid vaccine. - Social history:: Smoking status: Patient reports the use of cigarette tobacco products, smokes one pack cigarettes per day. - Family history:: not pertinent. - Hospitalizations: : No recent hospitalization is reported. Screenin:59 Abuse screen: Denies threats or abuse. Nutritional screening: No deficits noted. [facility] Tuberculosis screening: No symptoms or risk factors identified. Fall Risk None identified. Assessment: 12:59 Also complains of throat pain. General: Appears comfortable, Behavior is calm, [facility] cooperative. Cardiovascular: Reports chest pain, shortness of breath, since started thsi am Rhythm is sinus rhythm. 13:17 Reassessment: xray at bedside at this time. tw2 14:59 Reassessment: provider at bedside at this time. tw2 15:01 Reassessment: Patient appears in no apparent distress at this time. Patient and/or tw2 family updated on plan of care and expected duration. Pain level reassessed. Patient is alert, oriented x 3, equal unlabored respirations, skin warm/dry/pink. Patient states feeling better. Patient states symptoms have improved. Vital Signs: 12:50 BP 105 / 51; Pulse 85; Resp 20; Temp 98; Pulse Ox 97% on 2 lpm NC; Weight 88.9 kg; jh6 Height 5 ft. 7 in. (170.18 cm); Pain 10/10; 13:08 Weight 88.9 kg (R); Height 5 ft. 7 in. (170.18 cm); Pain 10/10; tw2 14:00 BP 116 / 51; Pulse 85; Resp 20; Pulse Ox 100% on 2 lpm NC; tw2 15:00 BP 98 / 50; Pulse 84; Resp 17; Pulse Ox 96% on 2 lpm NC; tw2 16:08 BP 92 / 55; Pulse 75; Pulse Ox 93% ; tw2 16:45 BP 124 / 63; Pulse 78; rn 17:02 BP 124 / 63; Pulse 83; Resp 17; Temp 97.7(O); Pulse Ox 95% ; Pain 0/10; jh6 13:08 Body Mass Index 30.70 (88.90 kg, 170.18 cm) tw2 ED Course: 12:41 Patient arrived in ED. tw2 12:41 Dominick Jansen MD is Attending Physician. rn 12:41 Placed in gown. Bed in low position. Call light in reach. Side rails up X2. Cardiac tw2 monitor on. Pulse ox on. NIBP on. 12:45 Maintain EMS IV. Dressing intact. Good blood return noted. Site clean \T\ dry. Gauge \T\ tw 2 site: 20 g RIGHT ac. 12:50 Ana King RN is Primary Nurse. jh6 12:55 Triage completed. jh6 12:55 Straight cath inserted, using sterile technique, 16 Fr. Specimen obtained. specimen tw2 obtained from surgical opening below scrotum. SUZANNE Davidson and SN Ruma assisted as clinic supervisor Returned [place] urine. Patient tolerated well. 12:58 Arm band placed on Patient placed in an exam room, on a stretcher, on oxygen, on jh6 security monitor, on pulse oximetry. 12:58 Inserted saline lock: 18 gauge in left antecubital area, using aseptic technique. iv jh6 started [place] by ems. Oxygen administration via nasal cannula \T\ 2L/min. 13:33 XRAY Chest (1 view) In Process Unspecified. EDMS 14:17 CT Chest For PE Angio In Process Unspecified. EDMS 16:21 EKG done, by computer service technician. tp1 17:03 No provider procedures requiring assistance completed. IV discontinued, intact, jh6 bleeding controlled, No redness/swelling at site. Pressure dressing applied. Administered Medications: 13:34 Drug: SOLU-Medrol (methylPrednisoLONE) 125 mg Route: IVP; Site: left antecubital; tw2 15:03 Follow up: Response: No adverse reaction tw2 13:37 Drug: Xopenex (levalbuterol) (3) 1.25 mg Route: Inhalation; tw2 14:19 Follow up: Response: No adverse reaction tw2 15:08 Drug: Ketorolac 15 mg Route: IVP; Site: left antecubital; tw2 16:00 Follow up: Response: Pain is decreased [facility] Outcome: 16:46 Discharge ordered by . suzanne 17:03 Discharged to home [facility] 17:03 Condition: improved 17:03 Discharge instructions given to patient, Instructed on discharge instructions, follow up and referral plans. Demonstrated understanding of instructions, follow-up care. 17:39 Patient left the ED. em1 Signatures: Dispatcher [employer] EDMS Dominick Jansen MD MD rn Martinez, Eric em1 Maida Phan RN RN 2 Ana King RN RN 6 Ruma Rangel [facility]
--- NOTE | 2021-09-25 16:46 | EDPHYS ---
Physician Documentation [facility] Name: Antony Rothman Age: 66 yrs Sex: Male : 1955 Arrival Date: 09/25/2021 Time: 12:41 Bed 4 Private MD: ED Physician Dominick Jansen HPI: 09/25 13:07 This 66 yrs old Male presents to ER via EMS with complaints of Chest Pain > rn 32 y/o. 13:07 The patient or guardian reports chest pain that is located primarily in the anterior rn chest wall. Onset: this morning. The pain does not radiate. Associated signs and symptoms: Pertinent positives: cough, shortness of breath, Pertinent negatives: diaphoresis, headache, palpitations. The chest pain is described as sharp. Duration: The patient or guardian reports multiple episodes, that are intermittent. Modifying factors: The symptoms are alleviated by nothing. the symptoms are aggravated by cough, deep breath. Severity of pain: At its worst the pain was moderate in the emergency department the pain has improved. The patient has not experienced similar symptoms in the past. The patient has not recently seen a physician. 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 - Social history:: Smoking status: Patient reports the use of cigarette tobacco products, smokes one pack cigarettes per day. - Family history:: not pertinent. - Hospitalizations: : No recent hospitalization is reported. ROS: 13:07 Constitutional: Negative for fever, chills, and weight loss, Eyes: Negative for injury, rn pain, redness, and discharge, Neck: Negative for injury, pain, and swelling, Cardiovascular: Positive for chest pain Respiratory: Positive for cough and shortness of breath Abdomen/GI: Negative for abdominal pain, nausea, vomiting, diarrhea, and constipation, Back: Negative for injury and pain, MS/Extremity: Negative for injury and deformity, Skin: Negative for injury, rash, and discoloration, Neuro: Negative for headache, weakness, numbness, tingling, and seizure. Exam: 13:07 Constitutional: This is a well developed, well nourished patient who is awake, alert, rn and in no acute distress. Head/Face: Normocephalic, atraumatic. Eyes: Periorbital areas with no swelling, redness, or edema. Cardiovascular: Regular rate and rhythm. No pulse deficits. Respiratory: Mild tachypnea. Speaking full sentences. No retractions Abdomen/GI: Soft, non-tender Skin: Warm, dry MS/ Extremity: Pulses equal, no cyanosis. Neurovascular intact. Full, normal range of motion. Equal circumference. Neuro: Awake and alert, GCS 15 14:54 ECG was reviewed by the Attending Physician. rn Vital Signs: 12:50 BP 105 / 51; Pulse 85; Resp 20; Temp 98; Pulse Ox 97% on 2 lpm NC; Weight 88.9 kg; jh6 Height 5 ft. 7 in. (170.18 cm); Pain 10/10; 13:08 Weight 88.9 kg (R); Height 5 ft. 7 in. (170.18 cm); Pain 10/10; tw2 14:00 BP 116 / 51; Pulse 85; Resp 20; Pulse Ox 100% on 2 lpm NC; tw2 15:00 BP 98 / 50; Pulse 84; Resp 17; Pulse Ox 96% on 2 lpm NC; tw2 16:08 BP 92 / 55; Pulse 75; Pulse Ox 93% ; tw2 16:45 BP 124 / 63; Pulse 78; rn 17:02 BP 124 / 63; Pulse 83; Resp 17; Temp 97.7(O); Pulse Ox 95% ; Pain 0/10; jh6 13:08 Body Mass Index 30.70 (88.90 kg, 170.18 cm) tw2 MDM: 12:42 Patient medically screened. rn 15:23 ED course: Patient feels much better. Troponin and ECG normal without ischemia. Denies rn any chest pain. Treated only with steroids and nebulizer here. States feels much better. Will repeat troponin and if negative send home with steroids/anti-inflammatories and return precautions.. 16:24 ED course: No significant changes on ECG. Repeat trop pending. If normal, plan to dc rn home with pcp f/u and will treat as pleuritic pain and COPD exacerbation.. 16:43 Differential diagnosis: acute myocardial infarction, acute pericarditis, coronary rn artery disease costochondritis, pleurisy, pneumonia, pneumothorax, pulmonary embolus. 16:44 Data reviewed: vital signs, nurses notes, lab test result(s), EKG, radiologic studies, rn CT scan, plain films, and as a result, I will discharge patient. Test interpretation: by ED physician or midlevel provider: ECG, plain radiologic studies, Chest x-ray negative for acute infiltrate or pneumothorax. Counseling: I had a detailed discussion with the patient and/or guardian regarding: the historical points, exam findings, and any diagnostic results supporting the discharge/admit diagnosis, lab results, radiology results, the need for outpatient follow up, to return to the emergency department if symptoms worsen or persist or if there are any questions or concerns that arise at home. Response to treatment: the patient's symptoms have markedly improved after treatment, the patient's condition has returned to base line, the patient is now symptom free, and as a result, I will discharge patient. Special discussion: Based on the patient's history, exam, and Dx evaluation, there is no indication for emergent intervention or inpatient Tx. It is understood by the patient/guardian that if the Sx's persist or worsen they need to return immediately for re-evaluation. I discussed with the patient/guardian in detail that at this point there is no indication for admission to the hospital. It is understood, however, that if the symptoms persist or worsen the patient needs to return immediately for re-evaluation. ED course: Repeat troponin negative. No gross changes on ECG. Patient feels better. Will DC home as COPD exacerbation.. 09/25 12:42 Order name: Basic Metabolic Panel; Complete Time: 13:49 rn 09/25 12:42 Order name: CBC with Diff; Complete Time: 13: rn 09/25 12:42 Order name: LFT's; Complete Time: 13:49 rn 09/25 12:42 Order name: NT PRO-BNP; Complete Time: 13:49 rn 09/25 12:42 Order name: PT-INR; Complete Time: 13: rn 09/25 12:42 Order name: Troponin (emerg Dept Use Only); Complete Time: 13:49 rn 09/25 12:42 Order name: XRAY Chest (1 view); Complete Time: 13:49 rn 09/25 12:42 Order name: CT Chest For PE Angio; Complete Time: 14:41 rn 09/25 13:03 Order name: Urine Dipstick-Ancillary; Complete Time: 13:09 EDMS 09/25 13:08 Order name: Urine Dipstick-Ancillary; Complete Time: 13:49 EDMS 09/25 15:23 Order name: Troponin (emerg Dept Use Only); Complete Time: 16:43 rn 09/25 12:42 Order name: EKG; Complete Time: 12:43 rn 09/25 12:42 Order name: Cardiac monitoring; Complete Time: 13:04 rn 09/25 12:42 Order name: EKG - Nurse/Tech; Complete Time: 13:04 09/25 12:42 Order name: IV Saline Lock; Complete Time: 13:04 09/25 12:42 Order name: Labs collected and sent; Complete Time: 13:04 09/25 12:42 Order name: O2 Per Protocol; Complete Time: 13:04 rn 09/25 12:42 Order name: O2 Sat Monitoring; Complete Time: 13:04 rn 09/25 12:43 Order name: Urine Dipstick-Ancillary (obtain specimen); Complete Time: 13:04 09/25 13:04 Order name: Straight Cath - Urine; Complete Time: 13:04 [facility] 09/25 15:02 Order name: Diet Ada [address]; Complete Time: 15:03 [facility] 09/25 16:07 Order name: EKG Strip; Complete Time: 16:07 [facility] EC:54 Rate is 86 beats/min. Rhythm is regular. QRS Ortley is Normal. OK interval is normal. QRS rn interval is normal. QT interval is normal. No Q waves. T waves are Normal. No ST changes noted. Clinical impression: Normal ECG. Interpreted by me. Reviewed by me. Administered Medications: 13:34 Drug: SOLU-Medrol (methylPrednisoLONE) 125 mg Route: IVP; Site: left antecubital; tw2 15:03 Follow up: Response: No adverse reaction tw2 13:37 Drug: Xopenex (levalbuterol) (3) 1.25 mg Route: Inhalation; tw2 14:19 Follow up: Response: No adverse reaction tw2 15:08 Drug: Ketorolac 15 mg Route: IVP; Site: left antecubital; tw2 16:00 Follow up: Response: Pain is decreased jh6 Disposition Summary: 09/25/21 16:46 Discharge Ordered Location: Home rn Problem: new rn Symptoms: have improved rn Condition: Stable rn Diagnosis - Chest pain, unspecified rn - Pleurisy rn - COPD/ Chronic obstructive pulmonary disease with (acute) exacerbation rn Followup: rn - With: Private Physician - When: As needed - Reason: Recheck today's complaints, Re-evaluation by your physician Discharge Instructions: - Discharge Summary Sheet rn - Nonspecific Chest Pain, Adult rn - Pleurisy rn - Chronic Obstructive Pulmonary Disease Exacerbation rn Forms: - Medication Reconciliation Form rn - Thank You Letter rn - Antibiotic cardiovascular rn - Prescription Opioid Use rn Prescriptions: - albuterol sulfate 90 mcg/actuation Inhalation HFA aerosol inhaler - inhale 2 puff by INHALATION route every 4-6 hours; 1 Pump; Refills: 0, Product rn Selection Permitted - Prednisone 20 mg Oral Tablet - take 3 tablets by ORAL route once daily for 5 days; 15 tablet; Refills: 0, rn Product Selection Permitted Signatures: Dispatcher [employer] EDDominick Morrison MD MD rn Wise, Tara RN RN tw2 Ana King RN RN jh6
[2021-09-25 17:56] VITALS: BP 124/63
[2021-09-25 17:57] VITALS: TEMP 97.7; O2SAT 95
== END 2021-09-25 17:39 | disposition home or self-care (01) ==
LOC: ER 12:35
DX: R09.1 Pleurisy (principal); J44.1 Chronic obstructive pulmonary disease with (acute) exacerbation
CPT/HCPCS: 93005 ×2; 85025; 80048; 36415; 85610; 80076; 81003 ×2; 84484 ×2; 83880; 71275; 71045; 51702; 96375; 96374; 99285; Q9967; J2930

== ENCOUNTER 2023-07-14 22:18 | Emergency (ER) | payer OTHER ==
[2023-07-14] MEDS ORDERED: SMZ./TMP. 800/160 MG TABLET ONE (23:00)
[2023-07-14] MEDS ORDERED: TDAP (DIPHTH,PERTUSS(ACELL),TET VAC) 0.5 ML VIAL IMVAC ONE (23:00)
[2023-07-14] MEDS ORDERED: SILVER SULFADIAZINE 1% 25 GM TOP ONE (23:01)
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
--- NOTE | 2023-07-15 00:21 | EDPHYS ---
Physician Documentation [facility] Name: Antony Rothman Age: 67 yrs Sex: Male : 1955 Arrival Date: 07/14/2023 Time: 22:18 Bed 11 Private MD: ED Physician Lonnie Black HPI: 07/14 22:33 This 67 yrs old Male presents to ER via Unassigned with complaints of Burn. sp4 07/15 00:26 67-year-old male with history of diabetes and COPD presents with acute burn to the sp4 right lower back, which was caused by a hot truck pipe exhaust pipe 6 days ago. Patient states he leaned against a hot exhaust pipe of a dump truck and sustained burn. No other injuries. Patient reports pain tenderness and redness in the burn area. He reports he has used Neosporin for management of the burn. . Historical: - Allergies: 07/14 22:53 No Known Allergies; as6 - PMHx: 22:53 COPD; urinary opening rerouted to scrotum; Diabetes mellitus; as6 - PSHx: 22:53 Appendectomy; knee; leg; as6 - Immunization history:: Last tetanus immunization: unknown. - Social history:: Smoking status: Patient reports the use of cigarette tobacco products, smokes two packs cigarettes per day. - Family history:: not pertinent. ROS: 07/15 00:26 Constitutional: Negative for fever, chills, and weight loss, Skin: Negative for injury, sp4 rash, and discoloration, positive right lower back acute thermal burn All other systems are negative. Exam: 00:26 Constitutional: This is a well developed, well nourished patient who is awake, alert, sp4 and in no acute distress. Head/Face: Normocephalic, atraumatic. Eyes: Pupils equal round and reactive to light, extra-ocular motions intact. Lids and lashes normal. Conjunctiva and sclera are not injected. Cornea within normal limits. Periorbital areas with no swelling, redness, or edema. ENT: Nares patent. No nasal discharge, no septal abnormalities noted. Tympanic membranes are normal and external auditory canals are clear. Oropharynx with no redness, swelling, or masses, exudates, or evidence of obstruction, uvula midline. Mucous membranes moist. Neck: Trachea midline, no thyromegaly or masses palpated, and no cervical lymphadenopathy. Supple, full range of motion without nuchal rigidity, or vertebral point tenderness. Chest/axilla: Normal chest wall appearance and motion. Nontender with no deformity. No lesions are appreciated. Cardiovascular: Regular rate and rhythm with a normal S1 and S2. No gallops, murmurs, or rubs. Normal PMI, no JVD. No pulse deficits. Respiratory: Lungs have equal breath sounds bilaterally, clear to auscultation and percussion. No rales, rhonchi or wheezes noted. No increased work of breathing, no retractions or nasal flaring. Abdomen/GI: Soft, non-tender, with normal bowel sounds. No distension or tympany. No guarding or rebound. No evidence of tenderness throughout. Back: No spinal tenderness. No costovertebral tenderness. Skin: Warm, dry with normal turgor. Normal color with no rashes, no lesions, right lower back thermal burn second-degree with skin desquamation, and mild degree of cellulitis around the burn area. MS/ Extremity: Pulses equal, no cyanosis. Neurovascular intact. Full, normal range of motion. Neuro: Awake and alert, GCS 15, oriented to person, place, time, and situation. Cranial nerves II-XII grossly intact. Motor strength 5/5 in all extremities. Sensory grossly intact. Psych: Awake, alert, with orientation to person, place and time. Behavior, mood, and affect are within normal limits Vital Signs: 07/14 22:52 BP 130 / 84; Pulse 82; Resp 18 S; Temp 99.1(TE); Pulse Ox 98% on R/A; Weight 88.45 kg as6 (R); Height 5 ft. 7 in. (R); Pain 5/10; 07/15 00:30 BP 127 / 81; Pulse 74; Resp 18 S; Pulse Ox 99% on R/A; as6 07/14 22:52 Body Mass Index 30.54 (88.45 kg, 170.18 cm) as6 07/14 22:52 Pain Scale: Adult as6 Procedures: 00:26 Performed Wound care, burn irrigation, dressing. Burn was irrigated with normal saline sp4 and Silvadene was applied and dressing was applied over Silvadene.. MDM: 07/14 22:45 Patient medically screened. sp4 07/15 00:26 Differential diagnosis: 1st degree solis, 2nd degree solis, 3rd degree solis, sp4 inhalation injury. Data reviewed: vital signs, nurses notes, old medical records, lab test result(s), finger stick glucose. Consideration of Admission/Observation Escalation of care including admission/observation considered. ED course: Dressing was applied onto the burn and patient is stable for discharge home, blood sugar 113, patient advised to take Bactrim twice a day, practice Silvadene dressing twice a day, also see primary care physician in 7 to 10 days for a wound check.. Bactrim was prescribed for mild degree of cellulitis which is beginning to manifest around the thermal burn. . 07/15 00:16 Order name: Glucose, Ancillary Testing; Complete Time: 00:19 EDMS 07/14 22:40 Order name: Wound Care; Complete Time: 00:20 sp4 Administered Medications: 07/14 22:57 Drug: Trimethoprim-Sulfamethoxazole PO (160 mg-800 mg (DS) 1 tablet Route: PO; as6 07/15 00:27 Follow up: Response: No adverse reaction as6 07/14 22:57 Not Given (Other Intervention Used): Tetanus-Diphtheria Toxoid IM Adult 0.5 ml IM once; as6 Provide Vaccine Information Statement (VIS). 22:57 Drug: Boostrix Tdap IM 0.5 ml Route: IM; Site: right deltoid; as6 07/15 00:26 Follow up: Response: No adverse reaction as6 00:20 Drug: Silver SulfADIAZINE Topical Cream 1 % 1 application {Note: administered by as6 provider.} Route: Topical; Site: affected area; 00:27 Follow up: Response: No adverse reaction as6 Disposition Summary: 07/15/23 00:21 Discharge Ordered Location: Home sp4 Problem: new sp4 Symptoms: have improved sp4 Condition: Stable sp4 Diagnosis - Second-degree burn right lower back, thermal burn right lower back sp4 Followup: sp4 - With: Private Physician - When: 7 - 10 days - Reason: Recheck today's complaints Discharge Instructions: - Discharge Summary Sheet sp4 - Burn Care, Adult, [id number] sp4 Forms: - Patient Portal Instructions sp4 Prescriptions: - Silvadene 1 % Topical Cream - Apply to affected area 1 application by TOPICAL route every 12 hours apply sp4 twice daily to burn area , keep bandage on; 50 gram; Refills: 0, Product Selection Permitted - Bactrim DS 800-160 mg Oral Tablet - take 1 tablet by ORAL route every 12 hours for 10 days; 20 tablet; Refills: 0, sp4 Product Selection Permitted Signatures: Dispatcher [employer] Porfirio Tirado RN RN as6 Lonnie Black MD MD sp4 Corrections: (The following items were deleted from the chart) 07/14 22:55 22:53 Social history: Smoking status: Patient reports the use of cigarette tobacco as6 products, smokes one-half pack cigarettes per day, as6
[2023-07-15 00:35] VITALS: TEMP 99.1
[2023-07-15 00:37] VITALS: BP 127/81; O2SAT 99
== END 2023-07-15 00:31 | disposition home or self-care (01) ==
LOC: ER 22:18
DX: T21.24XA Burn of second degree of lower back, initial encounter (principal); E11.9 Type 2 diabetes mellitus without complications
CPT/HCPCS: 82947; 96372; 99284